=== PATIENT | male | born 1955 | race Caucasian/White ===

== ENCOUNTER → 2024-01-05 15:03 | Outpatient (REF) | payer OTHER, SELFPAY | LOC: RAD 15:03 | PROVIDERS: ATTENDING PHYSICIAN Student in an Organized Health Care Education/Training Program | DX: M54.50 Low back pain, unspecified (principal); S23.9XXS Sprain of unspecified parts of thorax, sequela | CPT/HCPCS: 72072; 72110 ==

== ENCOUNTER 2024-01-26 23:13 | Inpatient (IN) | payer OTHER, MEDICARE, SELFPAY ==
[2024-01-26 16:44] VITALS: BP 151/93
[2024-01-26 18:39] LABS: % Basophils 0.8 % (0-2); % Eosinophils 2.3 % (0-6); % Immature Granulocytes 0.3 % (0-0.5); % Lymphocytes 14.8 % (20.5-51.1); % Monocytes 11.2 % (1.7-9.3); % Neutrophils 70.6 % (42.2-75.2); Absolute Basophils 0.1 10^3/uL (0-0.2); Absolute Eosinophils 0.2 10^3/uL (0-0.7); Absolute Lymphocytes 1.2 10^3/uL (1.2-3.4); Absolute Monocytes 0.9 10^3/uL (0.1-0.6); Absolute Neutrophils 5.7 10^3/uL (1.4-6.5); Hematocrit 37.4 % (39.0-52.0); Hemoglobin 13.4 g/dL (13.0-18.0); Mean Corp Hgb Conc. 35.8 g/dL (33.0-37.0); Mean Corpuscular Hgb 29.5 pg (27.0-31.0); Mean Corpuscular Volume 82.4 fL (80.0-94.0); Mean Platelet Volume 10.1 fL (7.4-10.4); Nucleated Red Blood Cells % 0 % (-); Platelet Count 222 10^3/uL (130-400); Red Blood Cell Count 4.54 10^6/uL (4.70-6.10); Red Cell Dist. Width 13.3 % (11.5-14.5)
[2024-01-26 18:52] LABS: INR 1.19; PT 14.9 Sec (11.4-14.6)
--- NOTE | 2024-01-26 18:52 | ED.GENMED ---
History of Present Illness
<Darrel Adkins MD - Last Filed: 01/26/24 20:28>
General
Chief Complaint: DVT/Possible Blood Clot
Time Seen by Provider: 01/26/24 16:58
Travel History
Have you had any contact with someone who has COVID-19?: No
Do you have any symptoms of coronavirus? Fever > 100 degrees, chills, cough, shortness of breath, sore throat, loss of taste or smell, muscle aches, or headache?: No
<Dimitrios Davenport Jr., PA-C - Last Filed: 01/26/24 23:13>
General
Source: patient
Exam Limitations: none
Nursing documentation reviewed up to this point in time: agreed with
History of Present Illness
History of Present Illness:
61-year-old male past medical history of BPH status post surgery in 2019 presenting to the emergency department today for concerns of significant swelling to the left upper extremity starting at the bicep region starting 2 weeks ago slowly worsening
since no chest pain shortness of breath no history of blood clots no recent trauma surgery immobilization remote history of smoking.
Past History
<Darrel Adkins MD - Last Filed: 01/26/24 20:28>
Past History
ED Past Medical History: None
ED Past Surgical History: Orthopedic
Social History
Tobacco: Non-smoker
Alcohol: None
Personal:
Living: with family
Employment: Employed
Family History
Family History: Other
<Dimitrios Davenport Jr., PA-C - Last Filed: 01/26/24 23:13>
Review of Systems
Allergies reviewed?: Yes
All Other Systems: ROS reviewed and negative except as documented in HPI and ROS
<Dimitrios Davenport Jr., PA-C - Last Filed: 01/26/24 23:13>
Physical Exam
Physical Exam:
GENERAL: Alert , in no apparent distress
EYE: pupils equal and reactive
NECK: Supple, no significant adenopathy.
ENT: o/p clr, mmm.
CARDIAC: Regular rate and rhythm .
LUNGS: Clear breath sounds bilaterally, no acute respiratory distress, no wheezes/rales/rhonchi
ABDOMEN: Soft, without focal tenderness, no r/g, no cvat
NEUROLOGICAL: Alert and oriented, no focal neuro deficits
SKIN: Warm and dry, skin intact.
MUSCULOSKELETAL: Significant swelling to the left upper extremity redness swelling and warmth to the left bicep region some extension of swelling to the left arm and hand appears swollen compared to the right side. Swelling also goes to the left
axilla region. Normal distal pulses and cap refill well perfused.
PSYCH: Normal and appropriate interaction.
Course
<Darrel Adkins MD - Last Filed: 01/26/24 20:28>
Orders/Labs/Results
Orders:
Orders
01/26/24 16:48
Arms, left US [US Periph Venous UPPER Ext LT] Urgent
Comment: brusing to axilla
Reason For Exam: left arm swelling and bicep tenderness
01/26/24 18:22
CT Chest With Iv Contrast Urgent
Comment:
Reason For Exam: significant lue dvt
Neck w Contrast CT [CT Neck With Iv Contrast] Urgent
Comment:
Reason For Exam: arm dvt eval for extension
01/26/24 18:30
CBC/With Diff [Complete Blood Count/With Diff] Urgent
CMP [Comprehensive Metabolic Panel] Urgent
PT/INR [Prothrombin Time] Urgent
PTT Urgent
01/26/24 22:16
Heparin 6,900 units IV NOW STA
Nursing to Place Non Medication Order As Directed
Physician Order: PTT 6 hours after initial start of Heparin infusion
Above order entered?: Yes
03/12/24 22:30
Heparin 52772 Units/250 ml 25,000 units in 250 ml IV PER PROTOCOL
Weight to be used for heparin protocol in kilograms (kg):: 86.3
Protocol:: DVT/PE
PTT Goal Range to be used:: PTT 73 to 111 seconds
Order type:: Initial
INITIAL Infusion Dose (UNITS/KG/hr) & then follow protocol:: 18 units/kg/hr
Infusion Dose in UNITS/hr & then follow protocol (UNITS/hr):: 1,600
INFUSION RATE in mL/hr & then follow protocol (mL/hr):: 16
For DVT/PE algorithm, re-bolus for low PTT?: Yes
PTT less than or equal to 64 seconds:: Re-bolus 80 units/kg (max 10,000units). Increase by 300 units/hr
(+ 3mL/hr)
PTT 64.1 to 72.9 seconds:: Re-bolus 40 units/kg (max 5,000 units). Increase by 200 units/hr
(+ 2mL/hr)
PTT 73 to 111 seconds:: Target Range. No change in rate.
PTT 111.1 to 130.9 seconds:: Decrease rate by 200 units/hr (- 2 mL/hr)
PTT 131 to 199.9 seconds:: HOLD for 1 hr. Then decrease by 300 units/hr (- 3mL/hr)
PTT greater than or equal to 200 seconds:: HOLD for 2 hrs & Notify Provider. Then decrease by 300 units/hr
(- 3mL/hr)
Lab follow-up:: Each change, PTT q6h until 2 consecutive are therapeutic. Then
PTT daily.
01/26/24 22:37
Heparin 6,900 units IV PRN PRN
01/26/24 22:38
Heparin 3,500 units IV PRN PRN
01/26/24 22:54
Admit/Transfer Patient As Directed
Co-Sign Provider:
Level of Care: Inpatient admission
Assign to:: Medical/Surgical
Physician / Group: braydon carrillo
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
Reason for Hospitalization: extensive dvt L arm, lymphadenapathy likely lymphoma with mets ossoeus,
Expected length of stay greater than two midnights?: Yes
ELOS- Estimated Length of Stay in days: 4
I certify the patient meets the requirements for IP care: Yes
Code Status As Directed
Resuscitation Status: Full Code
01/27/24 04:45
PTT Urgent
Abnormal Lab Results
01/26/24
18:30
RBC 4.54 L 10^6/uL
(4.70-6.10)
Hct 37.4 L %
(39.0-52.0)
Absolute Monos (auto) 0.9 H 10^3/uL
(0.1-0.6)
Lymphocytes % 14.8 L %
(20.5-51.1)
Monocytes % 11.2 H %
(1.7-9.3)
PT 14.9 H Sec
(11.4-14.6)
Glucose 102 H mg/dl
(70-99)
01/26/24 18:30
01/26/24 18:30
Vital Signs
Initial and Last Documented VS:
Initial Vital Signs
Temp Pulse Resp BP Pulse Ox
98.8 F 92 18 151/93 97
01/26/24 16:44 01/26/24 16:44 01/26/24 16:44 01/26/24 16:44 01/26/24 16:44
Last Documented Vital Signs
Temp Pulse Resp BP Pulse Ox
98.8 F 92 18 151/93 97
01/26/24 16:44 01/26/24 16:44 01/26/24 16:44 01/26/24 16:44 01/26/24 16:44
<Dimitrios Davenport Jr., PA-C - Last Filed: 01/26/24 23:13>
Orders/Labs/Results
Orders:
Orders
01/26/24 16:48
Arms, left US [US Periph Venous UPPER Ext LT] Urgent
Comment: brusing to axilla
Reason For Exam: left arm swelling and bicep tenderness
01/26/24 18:22
CT Chest With Iv Contrast Urgent
Comment:
Reason For Exam: significant lue dvt
Neck w Contrast CT [CT Neck With Iv Contrast] Urgent
Comment:
Reason For Exam: arm dvt eval for extension
01/26/24 18:30
CBC/With Diff [Complete Blood Count/With Diff] Urgent
CMP [Comprehensive Metabolic Panel] Urgent
PT/INR [Prothrombin Time] Urgent
PTT Urgent
01/26/24 22:16
Heparin 6,900 units IV NOW STA
Nursing to Place Non Medication Order As Directed
Physician Order: PTT 6 hours after initial start of Heparin infusion
Above order entered?: Yes
01/26/24 22:30
Heparin [id number] Units/250 ml 25,000 units in 250 ml IV PER PROTOCOL
Weight to be used for heparin protocol in kilograms (kg):: 86.3
Protocol:: DVT/PE
PTT Goal Range to be used:: PTT 73 to 111 seconds
Order type:: Initial
INITIAL Infusion Dose (UNITS/KG/hr) & then follow protocol:: 18 units/kg/hr
Infusion Dose in UNITS/hr & then follow protocol (UNITS/hr):: 1,600
INFUSION RATE in mL/hr & then follow protocol (mL/hr):: 16
For DVT/PE algorithm, re-bolus for low PTT?: Yes
PTT less than or equal to 64 seconds:: Re-bolus 80 units/kg (max 10,000units). Increase by 300 units/hr
(+ 3mL/hr)
PTT 64.1 to 72.9 seconds:: Re-bolus 40 units/kg (max 5,000 units). Increase by 200 units/hr
(+ 2mL/hr)
PTT 73 to 111 seconds:: Target Range. No change in rate.
PTT 111.1 to 130.9 seconds:: Decrease rate by 200 units/hr (- 2 mL/hr)
PTT 131 to 199.9 seconds:: HOLD for 1 hr. Then decrease by 300 units/hr (- 3mL/hr)
PTT greater than or equal to 200 seconds:: HOLD for 2 hrs & Notify Provider. Then decrease by 300 units/hr
(- 3mL/hr)
Lab follow-up:: Each change, PTT q6h until 2 consecutive are therapeutic. Then
PTT daily.
01/26/24 22:37
Heparin 6,900 units IV PRN PRN
01/26/24 22:38
Heparin 3,500 units IV PRN PRN
01/26/24 22:54
Admit/Transfer Patient As Directed
Co-Sign Provider:
Level of Care: Inpatient admission
Assign to:: Medical/Surgical
Physician / Group: braydon carrillo
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
Reason for Hospitalization: extensive dvt L arm, lymphadenapathy likely lymphoma with mets ossoeus, 9
Expected length of stay greater than two midnights?: Yes
ELOS- Estimated Length of Stay in days: 4
I certify the patient meets the requirements for IP care: Yes
Code Status As Directed
Resuscitation Status: Full Code
01/27/24 04:45
PTT Urgent
Abnormal Lab Results
01/26/24
18:30
RBC 4.54 L 10^6/uL
(4.70-6.10)
Hct 37.4 L %
(39.0-52.0)
Absolute Monos (auto) 0.9 H 10^3/uL
(0.1-0.6)
Lymphocytes % 14.8 L %
(20.5-51.1)
Monocytes % 11.2 H %
(1.7-9.3)
PT 14.9 H Sec
(11.4-14.6)
Glucose 102 H mg/dl
(70-99)
01/26/24 18:30
01/26/24 18:30
Vital Signs
Initial and Last Documented VS:
Initial Vital Signs
Temp Pulse Resp BP Pulse Ox
98.8 F 92 18 151/93 97
01/26/24 16:44 01/26/24 16:44 01/26/24 16:44 01/26/24 16:44 01/26/24 16:44
Last Documented Vital Signs
Temp Pulse Resp BP Pulse Ox
98.8 F 92 18 151/93 97
01/26/24 16:44 01/26/24 16:44 01/26/24 16:44 01/26/24 16:44 01/26/24 16:44
<Dimitrios Davenport Jr., PA-C - Last Filed: 01/26/24 23:13>
MDM/Problems Addressed
MDM/Problems Addressed:
69-year-old male presenting to the emergency department today with concerns of swelling to the left arm nontraumatic no risk factors for blood clot no history of blood clots. Ultrasound performed that showed extensive clot throughout the left upper
extremity. Case was discussed with vascular. Plan for additional imaging into the chest and neck to see if there is any specific cause or extension of DVT. CT showing extensive additional clot into the internal jugular of the left side as well as
the distal segment of the brachiocephalic vein. There is a large amount of lymphadenopathy in the mediastinum raising concern for possible lymphoma or teofilo metastasis. There is an osteolytic lesion of T3 as well. These findings were discussed
with the patient. Vascular surgery was given update of additional findings. Patient was started on heparin and admitted to the hospital in stable condition.
<Dimitrios Davenport Jr., PA-C - Last Filed: 01/26/24 23:13>
*Critical Care Note
Total Time (30-74mins, 75-104mins- exclusive of procedures): Not Applicable
ED Attending Note
<Darrel Adkins MD - Last Filed: 01/26/24 20:28>
ED Attending Note
Patient seen and examined by attending physician: Yes
I performed the substantive portion of visit, reviewed & personally made and approve the management plan that is documented in note by myself or LILIANA.: Yes
ED Attending Note:
Nontraumatic swelling of the right arm progressive over weeks. No chest pain or shortness of breath. No trauma. No IV issues. No history of same.
On exam patient has significant swelling to the left arm with some erythema to the proximal left arm. Some venous changes along the upper chest wall. Good distal pulses and color.
No reason for this patient to have the extensive DVT. Reviewed ultrasound. Discussed with radiology. We have also talked to vascular surgery. Will get CT chest and neck
-
Portions of this chart may have been created with voice recognition software.� Occasional wrong word or��sound alike� substitutions may have occurred due to the inherent limitations of voice recognition software.
Discharge Plan
Departure
Patient Disposition: Admit
Date of Disposition: 01/26/24
Time of Disposition: 23:12
Admit to: Telemetry
Admit to doctor: Brad
Presentation/result/management discussed w/ accepting MD/DO: Hospitalist
Patient with high blood pressure during this ER visit?: Yes
Condition: Good
Covid-19: Not Applicable
Discharge Problem:
DVT (deep venous thrombosis), Lymphadenopathy, Osteolytic lesion
Prescriptions:
No Action
multivitamin Tablet
1 tab PO QPM
finasteride 5 mg tablet
5 mg PO HS
tamsulosin 0.4 MG capsule
0.4 mg PO HS
Referrals:
Pritesh Rai MD [Family Provider] -
Interventions
Interventions:
*Risk Screen - Suicide Last Done: 01/26/24 16:44
*General Assessment Last Done: 01/26/24 16:44
*Neglect/Abuse Screening Last Done: 01/26/24 16:44
ED- Fall Risk Assessment Last Done: 01/26/24 18:33
*ED COVID-19 Vaccine History Last Done: 01/26/24 17:11
ED- Cardiac Assessment Last Done: 01/26/24 18:33
ED- Pulmonary Assessment Last Done: 01/26/24 18:33
ED-Peripheral Vascular Assessment Last Done: 01/26/24 20:06
ED-Skin Assessment Last Done: 01/26/24 20:11
[2024-01-26 18:53] LABS: ALT (SGPT) 16 U/L (0-50); AST (SGOT) 29 U/L (17-59); Albumin 4.1 g/dl (3.5-5.0); Alkaline Phosphatase 77 U/L (38-126); Blood Urea Nitrogen 15 mg/dl (9-20); Calcium 9.5 mg/dl (8.4-10.2); Carbon Dioxide 29 mmol/L (22-30); Chloride 103 mmol/L (98-107); Glucose 102 mg/dl (70-99); Potassium 3.9 mmol/L (3.5-5.1); Sodium 136 mmol/L (135-145); Total Bilirubin 0.9 mg/dl (0.2-1.3); Total Protein 7.1 g/dl (6.3-8.2); eGFR > 60.00
[2024-01-26 20:04] VITALS: BMI 25.8
[2024-01-26 20:05] VITALS: BP 149/88
[2024-01-26 20:53] VITALS: BP 167/96
[2024-01-26 21:00] VITALS: BP 161/99
[2024-01-26 22:00] VITALS: BP 159/95
--- NOTE | 2024-01-26 22:25 | HPS.HSE ---
Addendum entered and electronically signed by Izabella Aguirre MD 01/26/24 23:07:
Patient seen and examined independently with [employer]. 69-year-old male past medical history of BPH status post surgery presenting with significant swelling and pain of his left upper extremity worsening over the past 2 weeks. No chest pain or shortness
of breath. No facial flushing/headache/blurry vision. Vascular ultrasound left upper extremity shows large amount of occlusive thrombus of the left upper extremity including internal jugular/subclavian and axillary veins, cephalic/brachial/basilic
veins. CT chest shows in addition shows large amount of lymphadenopathy in the mediastinum/supraclavicular regions concerning for lymphoma. There is also T3 and C5 osteolytic metastases, nondisplaced fracture of left lateral ninth rib.
Significant DVT secondary to likely newly discovered lymphoma. Heparin drip started. Vascular surgery consulted. Oncology consulted. Pain control.
Original Note:
Family Physician
-
Family Physician: Pritesh Rai
Chief Complaint
-
Left arm swelling, fatigue, left sided rib pain
History of Present Illness
69-year-old male complaining of swelling to his left upper extremity bicep area over the last 7 to 10 days extending down to left hand. He also reports fatigue over the last 1 to 2 months and midthoracic back pain a few weeks ago radiating to left
rib. He reports he was seen by PCP placed on a short course of prednisone and couple day dose of meloxicam but the pain did not dissipate. He reports he has pain along the left ninth ribs with inspiration and to touch. He denies any weight loss,
fever, chills ,recent trauma, chest pain, shortness of breath, palpitations, fever, chills, headache, dizziness. His past medical history of urinary retention/BPH.
Medical History
Past Medical History
Past Medical History: Reports Other (BPH)
Past Surgical History: Reports Other
Additional Past Surgical History:
TURP 2019
Left inguinal hernia repair 2019
Social History
Tobacco: Non-smoker
Alcohol: None
Drug: None
Personal: Single
Living: With Family (Son)
Employment: Employed ([employer])
Family History
Family History: Other (Believes father of lymphoma in his 80s, mother history of obesity, cardiac disease )
Allergies / Home Medications
Allergies reflects when Allergies were last updated in [facility].
Home Medications with original date entered in [facility]
Allergy/Medication List:
Allergies
Allergy/AdvReac Type Severity Reaction Status Date / Time
No Known Allergies Allergy Verified 01/08/21 20:51
Home Medications
finasteride 5 mg tablet 5 mg PO HS 01/26/24
multivitamin 1 tab PO QPM 01/26/24
tamsulosin 0.4 mg capsule 0.4 mg PO HS 01/26/24
Review of Systems
-
History Source: Patient
A 12 point ROS was completed and negative except as noted: Yes
Constitutional: Reports Fatigue; Denies Fever, Weight Loss or Chills
EENT: Denies Sore Throat, Mouth Pain or Runny Nose
Respiratory: Reports Cough and Other (Left lateral rib pain at ninth rib)
Cardiac: Denies Chest Pain, Diaphoresis, Palpitations or Syncope
Abdomen/GI: Denies Abdominal Pain, Nausea, Vomiting, Diarrhea, Constipated, Bloody Stools or Black Stools
: Denies Dysuria, Frequency, Flank Pain, Incontinence, Difficulty Voiding or Urgency
Musculoskeletal: Reports Edema (Left upper bicep to left lower extremity and hand)
Skin: Denies Itching or Rash
Neurological: Denies Dizzy, Headache or Weakness
Endocrine: Reports No Symptoms
Hematologic/Lymphatic: Reports No Symptoms
Psych: Reports Calm
Physical Exam
Vital Signs
Vital Signs
Temp Pulse Resp BP Pulse Ox
98.8 F 92 18 151/93 97
01/26/24 16:44 01/26/24 16:44 03/12/24 16:44 01/26/24 16:44 01/26/24 16:44
Physical Exam
General: Conversant; No Pain, Fever or Chills
HEENT: NormoCephalic, Anicteric, Moist mucous membranes, PERRLA, [place] Conjunctivae, No Ptosis and Neck Nontender
Respiratory: Clear; No Wheezes, Rales or Rhonchi
Cardiac: S1/S2 and Regular Rhythm
GI: Soft, Non Tender, Non Distended, Normal Bowel Sounds and No Hepatosplenomegaly
Rectal: Deferred by Provider
Genito-urinary: Deferred by me
Musculoskeletal: No Clubbing, No Cyanosis and Edema, Left Upper Extremity (Left upper bicep to left lower extremity and hand); No Edema, Right Upper Extremity, Edema, Left Lower Extremity or Edema, Right Lower Extremity
Skin: Warm and Dry; No Rash or Jaundice
Neuro: AO x 3, No Motor Deficits, Nonfocal/grossly intact, Cranial Nerves Intact and No Sensory Deficits; No Slurred Speech, Facial Droop, Tremors or Sedated
Psych: Calm
Laboratory Results
-
01/26/24 18:30
01/26/24 18:30
Laboratory Results
PT 14.9 Sec (11.4-14.6) H 01/26/24 18:30
INR 1.19 01/26/24 18:30
APTT 34.0 Sec (23.4-35.0) 01/26/24 18:30
Total Bilirubin 0.9 mg/dl (0.2-1.3) 01/26/24 18:30
AST 29 U/L (17-59) 01/26/24 18:30
ALT 16 U/L (0-50) 01/26/24 18:30
Alkaline Phosphatase 77 U/L (38-126) 01/26/24 18:30
Data Reviewed
-
CT Scan: Report Reviewed by me
Lab Data: Labs Reviewed by me
Impression/Plan
-
Impression/plan:
Admit to MedSurg
#Extensive DVT left upper extremity�left internal jugular/brachiocephalic in setting of NEW LYMPHOMA with mets to cervical, thoracic, scapular , ninth rib w/ fx
-IV heparin drip
-Consult oncology
- consult vascular surgery
CT neck with IV contrast:
1. Extensive occlusive thrombus in the left upper extremity with extension into the left internal jugular vein to the mid to upper neck at the level of C2 and the distal segment of the left brachiocephalic vein.
2. Large amount of lymphadenopathy in the mediastinum and bilateral supraclavicular regions raising concern for lymphoma or teofilo metastases.
3. Large osteolytic metastasis of the T3 vertebral body and posterior elements with extraosseous soft tissue.
4. Smaller lytic lesions in the C5 vertebral body and in the right scapula.
5. Subacute nondisplaced fracture of the left lateral ninth rib.
Ultrasound left upper extremity: Large amount of occlusive thrombus in the cephalic, brachial, basilic veins of the upper arm. Occlusive thrombus in the basilic vein distal to the elbow
#BPH
#Urinary retention Hx
Monitor urine output
Continue Flomax 0.4 mg daily, finasteride hs
Full code
[2024-01-26] MEDS: HEPARIN 6900 UNITS IV (22:40)
[2024-01-26] MEDS: HEPARIN 25000 UNITS/250 ML IV (22:41)
[2024-01-26 23:00] VITALS: BP 171/99
[2024-01-27] VITALS (7 sets, daily range): BP systolic 138–160; BP diastolic 84–105; BMI 25.6
--- NOTE | 2024-01-27 02:00 | PTCARENOTE ---
Received patient from the ED into room 2129. Patient able to ambulate to the bed without assistance. AAOx3. VSS. Heparin running at 16ml/hr (1600 units/hr) into R AC. PTT to be drawn at 0445. +3 edema to LUE that is red and warm. The rest of
assessment is as documented. Patient is resting comfortably in bed with call brown within reach.
--- NOTE | 2024-01-27 04:17 | W.PN.UPDATE ---
Update Note
Progress Note Update
One time order for Proscar 5mg and Flomax 0.4mg placed to cover patient HS dose as admission orders carried start date until next day.
[2024-01-27] MEDS: FLOMAX 0.400000000000000022 MG PO ×2 (04:31→20:19)
[2024-01-27] MEDS: PROSCAR 5 MG PO ×2 (04:36→20:19)
--- NOTE | 2024-01-27 04:54 | PTCARENOTE ---
Patient requesting dose of home medications of Flomax and Proscar. States he typically takes them after dinner and did not receive them last night. Reporting frequency and difficulty with urination due to the missed dose. Notified [employer]. One time
dose of Flomax 0.4mg PO and Proscar 5mg PO ordered and given. Patient has no further complaints at this time and is resting comfortably in bed with call brown within reach.
[2024-01-27 05:07] LABS: % Basophils 0.9 % (0-2); % Eosinophils 2.7 % (0-6); % Immature Granulocytes 0.2 % (0-0.5); % Lymphocytes 15.4 % (20.5-51.1); % Neutrophils 68.8 % (42.2-75.2); Absolute Basophils 0.1 10^3/uL (0-0.2); Absolute Eosinophils 0.2 10^3/uL (0-0.7); Absolute Lymphocytes 1.3 10^3/uL (1.2-3.4); Absolute Neutrophils 5.7 10^3/uL (1.4-6.5); Hematocrit 36.2 % (39.0-52.0); Hemoglobin 12.8 g/dL (13.0-18.0); Mean Corp Hgb Conc. 35.4 g/dL (33.0-37.0); Mean Corpuscular Hgb 29.1 pg (27.0-31.0); Mean Corpuscular Volume 82.3 fL (80.0-94.0); Mean Platelet Volume 10.4 fL (7.4-10.4); Nucleated Red Blood Cells % 0 % (-); Platelet Count 223 10^3/uL (130-400); Red Cell Dist. Width 13.1 % (11.5-14.5); White Blood Cell Count 8.2 10^3/uL (4.8-10.8)
[2024-01-27 05:19] LABS: APTT 155.5 Sec (23.4-35.0)
--- NOTE | 2024-01-27 05:28 | PTCARENOTE ---
Addendum entered by Radha Grider RN 01/27/24 06:31:
Heparin drip restarted at 1300 units/hr.
Original Note:
Patient PTT critical result of 155.5. Per protocol, heparin drip is on hold for 1 hour. At 0624, the rate will decrease by 300 from 1600 units/hr to 1300 units/hr. Will reassess PTT six hours from 0624.
[2024-01-27 05:44] LABS: Blood Urea Nitrogen 15 mg/dl (9-20); Calcium 9.2 mg/dl (8.4-10.2); Carbon Dioxide 25 mmol/L (22-30); Chloride 101 mmol/L (98-107); Estimated Creatinine Clearance 78 ml/min; Glucose 121 mg/dl (70-99); Potassium 3.5 mmol/L (3.5-5.1); Sodium 137 mmol/L (135-145); eGFR > 60.00
--- NOTE | 2024-01-27 09:04 | W.PN.HOSP.TC ---
Today's Communication/Plan
-
see bold
Assessment / Plan
Assessment / Plan
HPI: 69-year-old male past medical history of BPH status post surgery presenting with significant swelling and pain of his left upper extremity worsening over the past 2 weeks.� No chest pain or shortness of breath.� No facial
flushing/headache/blurry vision.� Vascular ultrasound left upper extremity shows large amount of occlusive thrombus of the left upper extremity including internal jugular/subclavian and axillary veins, cephalic/brachial/basilic veins.� CT chest
shows in addition shows large amount of lymphadenopathy in the mediastinum/supraclavicular regions concerning for lymphoma.� There is also T3 and C5 osteolytic metastases, nondisplaced fracture of left lateral ninth rib. Significant DVT secondary to
likely newly discovered lymphoma.� Heparin drip started.� Vascular surgery consulted.� Oncology consulted. Pain control.
#Extensive DVT left upper extremity�provoked
Vascular surgery consulted, continue heparin drip
#Large amount of lymphadenopathy in the mediastinum and bilateral supraclavicular regions raising concern for lymphoma or teofilo metastases
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
#Smaller lytic lesions in the C5 vertebral body and in the right scapula.
Appreciate oncology input, who recommends ENT consult for lymph node biopsy
#Subacute nondisplaced fracture of the left lateral ninth rib
Lidocaine patch, tylenol, pain meds prn
�� � � � � ��CT neck with IV contrast:
�� � � � � � � � � 1. Extensive occlusive thrombus in the left upper extremity with extension into the left internal jugular vein to the mid to upper neck at the level of C2 and the distal segment of the left brachiocephalic vein.
�� � � � � � � � � 2. Large amount of lymphadenopathy in the mediastinum and bilateral supraclavicular regions raising concern for lymphoma or teofilo metastases.
�� � � � � � � � � 3. Large osteolytic metastasis of the T3 vertebral body and posterior elements with extraosseous soft tissue.
�� � � � � � � � � 4. Smaller lytic lesions in the C5 vertebral body and in the right scapula.
�� � � � � � � � � 5. Subacute nondisplaced fracture of the left lateral ninth rib.
� � � � � ���Ultrasound left upper extremity:�Large amount of occlusive thrombus in the cephalic, brachial, basilic veins of the upper arm.� Occlusive thrombus in the basilic vein distal to the elbow
#BPH
#Urinary retention Hx
Continue Flomax 0.4 mg daily, finasteride hs
DVT prophylaxis�heparin drip
Full code
Physical Exam
General: No acute distress
HEENT: Normocephalic, Atraumatic, EOMI, MMM
Lymphadenopathy (L>R supraclav nodes, ~1cm)
Respiratory: Clear to Auscultation bilaterally
Cardiac: Normal S1/S2, Regular Rate and Rhythm
GI: Soft, Nontender, Nondistended, Normal Bowel Sounds
Extremities: No Clubbing, Cyanosis
Left upper extremity diffusely edematous, tender to palpation
Anticipated Discharge: 24 - 48 hours
Subjective/Interval History
-
Date of Service: January 27, 2024
Patient reports that his left upper extremity has been painful for 10 days. Denies shortness of breath. No fever, no night sweats, no unexplained weight loss, no anorexia.
Objective Data
-
Labs:
Laboratory Results
01/27/24 01/27/24
04:20 12:25
WBC 8.2
Hgb 12.8 L
Hct 36.2 L
Plt Count 223
APTT 155.5 H* Pending
Sodium 137
Potassium 3.5
Chloride 101
Carbon Dioxide 25
BUN 15
Creatinine 1.0
Glucose 121 H
Calcium 9.2
Vital Signs:
Vital Signs
Temp Pulse Resp BP Pulse Ox
98.7 F 89 14 142/84 95
01/27/24 07:25 01/27/24 07:25 01/27/24 07:25 01/27/24 07:25 01/27/24 07:25
I&O
03/11/0801/27/24 01/28/24
06:59 06:59 06:59
Intake Total 360 / 360
Balance 360 / 360
--- NOTE | 2024-01-27 11:25 | CON.ONC ---
Impression
Impression
LUE DVT, provoked in the setting of regional lymphadenopathy
neck/mediastinal adenopathy, suggestive of malignancy
bone lesions - T3, C5, right scapula; with back pain
Plan
Plan
Discussed findings suggestive of malignancy, lymphoma or other cancer
Will ask ENT to evaluate for excisional node biopsy for diagnosis
Continue heparin, to be held perioperatively as per ENT
Could switch to DOAC after biopsy
Will follow along and arrange outpatient heme/onc f/u at time of d/c
Patient History
History of Present Illness
This is a 69 yo M who presented to the emergency room with several day history of increasing left arm swelling and discomfort. Over the past few months he has noted some increasing fatigue and decreasing appetite, without weight loss. He had back
pain, unexplained by plain films unrelieved by physical therapy. Left upper extremity ultrasound revealed a large amount of occlusive thrombus. CT scans of the neck and chest showed occlusive thrombus with extension into the left internal jugular
vein in the distal segment of the left brachiocephalic vein. There is a large amount of lymphadenopathy in the mediastinum and bilateral supraclavicular regions raising concern for lymphoma or teofilo metastases. There is a large osteolytic
metastasis at the T3 vertebral body and posterior elements with extraosseous soft tissue, and smaller lytic lesions in the C5 vertebral body and in the right scapula. There is a subacute nondisplaced fracture of the left lateral ninth rib.. CBC at
admission showed white blood cell count of 8.0, hemoglobin of 13.4 and platelet count of 222. Chemistry panel was unremarkable, except slight glucose elevation.
He denies any history of cancer. He has not had a colonoscopy. He sees Dr. Duron for BPH. He had a hernia repair several years ago. No cough, shortness of breath, bowel changes, signs of GI bleeding, loss of appetite.
Past-Medical/Surgical History
Past medical and surgical history is as per the HPI
Family history is noncontributory
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
Patient Medication
Medication Instructions Recorded Confirmed Last Taken Type
finasteride 5 mg tablet 5 mg PO HS Urinary Issue 01/26/24 01/26/24 01/25/24 History
multivitamin 1 tab PO QPM Supplement 01/26/24 01/26/24 Unknown History
tamsulosin 0.4 mg capsule 0.4 mg PO HS Urinary Issue 01/26/24 01/26/24 01/25/24 History
Active Medications
Generic Name Dose Route Start Last Admin
Trade Name Freq PRN Reason Stop Dose Admin
Acetaminophen 650 mg 01/27/24 01:20
Acetaminophen 325 Mg Tablet PO 02/24/24 01:19
Q4HPRN PRN
mild pain/LEO/temp> 100.4F
Finasteride 5 mg 01/27/24 22:00
Finasteride 5 Mg Tablet PO 02/24/24 21:59
HS KRITSAN
Heparin Sodium 6,900 units 01/26/24 22:37
Heparin 80 Units/Kg Iv Rebolus IV 02/23/24 22:36
PRN PRN
PTT < OR = 64 seconds
Heparin Sodium 3,500 units 01/26/24 22:38
Heparin 40 Units/Kg Iv Rebolus IV 02/23/24 22:37
PRN PRN
PTT = 64.1 to 72.9 seconds
Heparin Sodium 25,000 units in 250 mls @ 0 mls/hr 01/26/24 22:30 01/26/24 22:41
Heparin 90759 Units/250 Ml IV 250 mls
PER PROTOCOL KRISTAN Administration
Protocol
Per Protocol
Multivitamins Therapeutic 1 tablet 01/27/24 18:00
Multivitamin Tablet PO 02/24/24 17:59
QPM KRISTAN
Oxycodone HCl 5 mg 01/27/24 01:20
Oxycodone 5 Mg Regular Release Tablet PO 02/10/24 01:19
Q4HPRN PRN
moderate pain
Sodium Chloride 0 flush 01/27/24 02:00
Sodium Chloride 0.9% (Flush) Syringe IV 02/24/24 01:59
PER PROTOCOL KRISTAN
Tamsulosin HCl 0.4 mg 01/27/24 22:00
Tamsulosin 0.4 Mg Capsule PO 02/24/24 21:59
HS KRISTAN
Review of Systems
-
History Source: Patient
Constitutional: Reports No Appetite and Fatigue; Denies Fever, Weight Gain or Weight Loss
EENT: Denies Sore Throat
Respiratory: Denies Cough or Trouble Breathing
Cardiac: Denies Chest Pain, Diaphoresis or Palpitations
GI: Denies Abdominal Pain, Nausea, Vomiting, Diarrhea, Bloody Stools, Black Stools or Pain
: Denies Dysuria
Musculoskeletal: Reports Edema
Neuro: Denies Weakness
Physical Exam
-
General: Well Developed, Well Nourished and No Apparent Distress
HEENT: Negative Jaundice
Cardiology: Normal Sinus Rhythm
Pulmonary: Clear
GI: Soft and Normal Bowel Sounds
Musculoskeletal: No Clubbing, No Cyanosis and Edema. Left Upper Extrem
Neurology: Non Focal
Skin: Warm and Dry
Hematologic / Lymphatic: Lymphadenopathy (L>R supraclav nodes, ~1cm)
Psych: Calm and Intact Judgement/Insight
Labs
Lab Results
WBC 8.2 10^3/uL (4.8-10.8) 01/27/24 04:20
RBC 4.40 10^6/uL (4.70-6.10) L 01/27/24 04:20
Hgb 12.8 g/dL (13.0-18.0) L 01/27/24 04:20
Hct 36.2 % (39.0-52.0) L 01/27/24 04:20
MCV 82.3 fL (80.0-94.0) 01/27/24 04:20
MCH 29.1 pg (27.0-31.0) 01/27/24 04:20
MCHC 35.4 g/dL (33.0-37.0) 01/27/24 04:20
RDW 13.1 % (11.5-14.5) 01/27/24 04:20
Plt Count 223 10^3/uL (130-400) 01/27/24 04:20
MPV 10.4 fL (7.4-10.4) 01/27/24 04:20
Abs Immat Gran (auto) 0.0 10^3/uL (0-0.05) 01/27/24 04:20
Absolute Neuts (auto) 5.7 10^3/uL (1.4-6.5) 01/27/24 04:20
Absolute Lymphs (auto) 1.3 10^3/uL (1.2-3.4) 01/27/24 04:20
Absolute Monos (auto) 1.0 10^3/uL (0.1-0.6) H 01/27/24 04:20
Absolute Eos (auto) 0.2 10^3/uL (0-0.7) 01/27/24 04:20
Absolute Basos (auto) 0.1 10^3/uL (0-0.2) 01/27/24 04:20
Immature Gran % 0.2 % (0-0.5) 01/27/24 04:20
Neutrophils % 68.8 % (42.2-75.2) 01/27/24 04:20
Lymphocytes % 15.4 % (20.5-51.1) L 01/27/24 04:20
Monocytes % 12.0 % (1.7-9.3) H 01/27/24 04:20
Eosinophils % 2.7 % (0-6) 01/27/24 04:20
Basophils % 0.9 % (0-2) 01/27/24 04:20
Creatinine 1.0 mg/dL (0.7-1.3) 01/27/24 04:20
Vital Signs
Vital Signs
Temp Pulse Resp BP Pulse Ox
98.7 F 89 14 142/84 95
01/27/24 07:25 01/27/24 07:25 01/27/24 07:25 01/27/24 07:25 01/27/24 10:10
[2024-01-27 13:04] LABS: APTT 61.3 Sec (23.4-35.0)
[2024-01-27] MEDS: HEPARIN 6900 UNITS IV (13:23)
--- NOTE | 2024-01-27 14:01 | W.PN.UPDATE ---
Update Note
Progress Note Update
Seen and examined with [facility]. Full consultation to follow. Briefly 69-year-old male who presented with most prominently increasing swelling in the left arm over the last 4 to 5 days. (Over the last weekend). He has had vague other symptoms
leading up to it. He notes overall tiredness, weight loss. He had noted back pain prior as well. Found to have extensive DVT in the left upper extremity. Found to have left IJ DVT as well. Further imaging suggesting potential malignancy as well.
Denies any motor weakness in the upper extremity. Just a sensation of slight tightness with the swelling. Otherwise he has no functional issues. No pain currently. No prior history of DVTs. No family history of DVTs. No significant other
cardiovascular risk factors that he reports.
Exam/He is awake and alert. He is in no acute distress. Breathing is unlabored. Left upper extremity moderate edema through the upper and forearm. The arm is soft. Compartments are all soft. No phlegmasia. Hand is pink and warm with palpable
radial pulse. Motor function completely intact.
Imaging all reviewed. Extensive left upper extremity DVT with extension into the subclavian vein and IJ vein with occlusive thrombus. Does not appear to involve the right sided brachiocephalic vein. SVC also does not appear involved. As noted in
imaging, multiple enlarged lymph nodes and concerning findings for malignancy/metastasis.
Plan/ Acute left upper extremity and IJ DVT in the setting of malignancy with multiple lymph nodes/lymphadenopathy and other findings as noted on scan. No phlegmasia. Compartments all soft. Nothing to offer from a invasive vascular surgical
perspective. Would recommend anticoagulation, defer to oncology/hematology for remainder of oncologic workup. Will sign off. Please call with questions.
--- NOTE | 2024-01-27 14:42 | CON.MD ---
Consultation - Medical
-
Patient seen and evaluated at the bedside.
Full consult dictated.
A/Z-22-navu-old male with bulky cervical and mediastinal lymphadenopathy, concern for lymphoma.
-Agree with excisional lymph node biopsy.
-Will attempt to get left supraclavicular lymph node for biopsy tomorrow in OR.
-Patient scheduled for procedure at approximately 12:30 PM on January 27.
-Risks and benefits of surgery discussed with patient, informed consent was obtained.
-Please keep patient n.p.o. for procedure.
-Hold heparin for at least 4 hours prior to procedure.
--- NOTE | 2024-01-27 14:48 | CON.VAS ---
Consultation
Consultation Request
Performing Provider: Smooth
Reason for Consultation: LUE DVT
Medical History
-
Chief Complaint: Left arm swelling
History of Present Illness:
69-year-old male who presented with most prominently increasing swelling in the left arm over the last 4 to 5 days.� (Over the last weekend).� He has had vague other symptoms leading up to it.� He notes overall tiredness, weight loss.� He had noted
back pain prior as well.� Found to have extensive DVT in the left upper extremity.� Found to have left IJ DVT as well.� Further imaging suggesting potential malignancy as well.
Denies any motor weakness in the upper extremity.� Just a sensation of slight tightness with the swelling.� Otherwise he has no functional issues.� No pain currently.� No prior history of DVTs.� No family history of DVTs.� No significant other
cardiovascular risk factors that he reports.
Exam/He is awake and alert.� He is in no acute distress.� Breathing is unlabored.� Left upper extremity moderate edema through the upper and forearm.� The arm is soft.� Compartments are all soft.� No phlegmasia.� Hand is pink and warm with palpable
radial pulse.� Motor function completely intact.
Imaging all reviewed.� Extensive left upper extremity DVT with extension into the subclavian vein and IJ vein with occlusive thrombus.� Does not appear to involve the right sided brachiocephalic vein.� SVC also does not appear involved.� As noted in
imaging, multiple enlarged lymph nodes and concerning findings for malignancy/metastasis.
Past Medical History
Past Medical History: Other (BPH)
Past Surgical History: None
Social History
Tobacco: Non-Smoker
Alcohol: None
Drug: None
Living: With Family
Employment: Employed
Family History
Family History: Cancer (Father with 'similar stuff' in his 80's)
Allergies / Home Medications
Allergy/AdvReac Type Severity Reaction Status Date / Time
No Known Allergies Allergy Verified 01/08/21 20:51
Medication Instructions Recorded Confirmed Type
finasteride 5 mg tablet 5 mg PO HS Urinary Issue 01/26/24 01/26/24 History
multivitamin 1 tab PO QPM Supplement 01/26/24 01/26/24 History
tamsulosin 0.4 mg capsule 0.4 mg PO HS Urinary Issue 01/26/24 01/26/24 History
Review of Systems
-
History Source: Patient
All other systems: Negative unless noted
Constitutional: Reports Weight Loss and Fatigue
EENT: Reports No Symptoms
Respiratory: Reports No Symptoms
Cardiac: Reports No Symptoms
Vascular: Denies Leg Pain / Claudication
Abdomen/GI: Reports No Symptoms
: Reports No Symptoms
Musculoskeletal: Reports Muscle Pain (back pain)
Skin: Reports No Symptoms
Neurological: Reports No Symptoms
Endocrine: Reports No Symptoms
Physical Exam
Vital Signs
Temp Pulse Resp BP Pulse Ox
98.7 F 89 14 142/84 95
01/27/24 07:25 01/27/24 07:25 01/27/24 07:25 01/27/24 07:25 01/27/24 10:10
Lab Results
01/27/24 04:20
01/27/24 04:20
Physical Exam
General: No Apparent Distress
HEENT: Normocephalic and Atraumatic
Respiratory: Non Labored Respirations
Cardiac: Other (palpable radial pulses BL); Negative JVD
GI: Soft and Non Tender
Musculoskeletal: No Clubbing, No Cyanosis and Edema (LUE)
Skin: Warm
Neuro: Awake, Alert and Oriented
Psych: Calm
Pulses: Bilateral Femoral: +2
Assessment / Plan
-
Plan/ Acute left upper extremity and IJ DVT in the setting of malignancy with multiple lymph nodes/lymphadenopathy and other findings as noted on scan.� No phlegmasia.� Compartments all soft.� Nothing to offer from a invasive vascular surgical
perspective.� Would recommend anticoagulation, defer to oncology/hematology for remainder of oncologic workup.� Will sign off.� Please call with questions.
--- NOTE | 2024-01-27 15:00 | CM ---
Initial assessment completed with patient who lives with his 2 sons and a lindsey-in-law. 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 Pharmacy is [facility] in [place] and PCP is Pritesh Rai at [facility]. Anticipate discharge to home with no services.
[2024-01-27] MEDS: THERAGRAN 1 TABLET PO (17:18)
[2024-01-27] MEDS: HEPARIN 25000 UNITS/250 ML IV (17:22)
--- NOTE | 2024-01-27 21:24 | PTCARENOTE ---
Addendum entered by Radha Griedr RN 01/27/24 23:12:
This RN restarted pump at 2155 at 1300 units/hour.
Original Note:
PTT critical value of 179.0. Per protocol, heparin is now on hold for an hour. Will resume at 2155 and decrease by 300. Patient was currently running at 1600 units/hr and will go to 1300 units/hour when resumed.
[2024-01-28] VITALS (7 sets, daily range): BP systolic 118–140; BP diastolic 69–94
[2024-01-28 05:05] LABS: Hematocrit 35.8 % (39.0-52.0); Hemoglobin 12.6 g/dL (13.0-18.0); Mean Corp Hgb Conc. 35.2 g/dL (33.0-37.0); Mean Corpuscular Volume 82.5 fL (80.0-94.0); Mean Platelet Volume 10.3 fL (7.4-10.4); Platelet Count 226 10^3/uL (130-400); Red Blood Cell Count 4.34 10^6/uL (4.70-6.10); Red Cell Dist. Width 13.2 % (11.5-14.5); White Blood Cell Count 8.9 10^3/uL (4.8-10.8)
[2024-01-28 05:26] LABS: APTT 97.1 Sec (23.4-35.0)
[2024-01-28 05:33] LABS: Blood Urea Nitrogen 15 mg/dl (9-20); Calcium 9.2 mg/dl (8.4-10.2); Carbon Dioxide 26 mmol/L (22-30); Chloride 101 mmol/L (98-107); Estimated Creatinine Clearance 86 ml/min; Glucose 106 mg/dl (70-99); Sodium 136 mmol/L (135-145); eGFR > 60.00
--- NOTE | 2024-01-28 08:41 | W.PN.HOSP.TC ---
Today's Communication/Plan
-
For lymph node biopsy today
Start Eliquis 2 hours afterwards
Discharge home if feeling okay
Follow-up with ENT & oncology in the office in 1-2 weeks
Assessment / Plan
Assessment / Plan
HPI: 69-year-old male past medical history of BPH status post surgery presenting with significant swelling and pain of his left upper extremity worsening over the past 2 weeks.� No chest pain or shortness of breath.� No facial
flushing/headache/blurry vision.� Vascular ultrasound left upper extremity shows large amount of occlusive thrombus of the left upper extremity including internal jugular/subclavian and axillary veins, cephalic/brachial/basilic veins.� CT chest
shows in addition shows large amount of lymphadenopathy in the mediastinum/supraclavicular regions concerning for lymphoma.� There is also T3 and C5 osteolytic metastases, nondisplaced fracture of left lateral ninth rib. Significant DVT secondary to
likely newly discovered lymphoma.� Heparin drip started.� Vascular surgery consulted.� Oncology consulted. Pain control.
#Large amount of lymphadenopathy in the mediastinum and bilateral supraclavicular regions raising concern for lymphoma or teofilo metastases
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
#Smaller lytic lesions in the C5 vertebral body and in the right scapula.
Appreciate oncology input, who recommends ENT consult for lymph node biopsy
For lymph node biopsy today
Start Eliquis 2 hours afterwards
Discharge home if feeling okay
Follow-up with ENT & oncology in the office in 1-2 weeks
#Extensive DVT left upper extremity�provoked
Vascular surgery consulted, no surgical intervention
Status post heparin drip, will change to Eliquis after his lymph node biopsy today
#Subacute nondisplaced fracture of the left lateral ninth rib
#Pathologic due to neoplastic disease - lymphoma
Lidocaine patch, tylenol, pain meds prn
�� � � � � ��CT neck with IV contrast:
�� � � � � � � � � 1. Extensive occlusive thrombus in the left upper extremity with extension into the left internal jugular vein to the mid to upper neck at the level of C2 and the distal segment of the left brachiocephalic vein.
�� � � � � � � � � 2. Large amount of lymphadenopathy in the mediastinum and bilateral supraclavicular regions raising concern for lymphoma or teofilo metastases.
�� � � � � � � � � 3. Large osteolytic metastasis of the T3 vertebral body and posterior elements with extraosseous soft tissue.
�� � � � � � � � � 4. Smaller lytic lesions in the C5 vertebral body and in the right scapula.
�� � � � � � � � � 5. Subacute nondisplaced fracture of the left lateral ninth rib.
� � � � � ���Ultrasound left upper extremity:�Large amount of occlusive thrombus in the cephalic, brachial, basilic veins of the upper arm.� Occlusive thrombus in the basilic vein distal to the elbow
#BPH
#Urinary retention Hx
Continue Flomax 0.4 mg daily, finasteride hs
DVT prophylaxis�SCDs
Full code
Physical Exam
General: No acute distress
HEENT: Normocephalic, Atraumatic, EOMI, MMM
Lymphadenopathy (L>R supraclav nodes, ~1cm)
Respiratory: Clear to Auscultation bilaterally
Cardiac: Normal S1/S2, Regular Rate and Rhythm
GI: Soft, Nontender, Nondistended, Normal Bowel Sounds
Extremities: No Clubbing, Cyanosis
Left upper extremity diffusely edematous, tender to palpation
Anticipated Discharge: Today
Subjective/Interval History
-
Date of Service: January 28, 2024
Patient reports left upper arm is tight and sore. No severe pain. No shortness of breath, no chest pain.
Objective Data
-
Labs:
Laboratory Results
01/27/24 01/28/24 01/28/24
20:15 04:13 11:30
WBC 8.9
Hgb 12.6 L
Hct 35.8 L
Plt Count 226
APTT 179.0 H* 97.1 H Pending
Sodium 136
Potassium 4.0
Chloride 101
Carbon Dioxide 26
BUN 15
Creatinine 0.9
Glucose 106 H
Calcium 9.2
Vital Signs:
Vital Signs
Temp Pulse Resp BP Pulse Ox
98.5 F 90 14 140/94 95
01/28/24 07:56 01/28/24 07:56 01/28/24 07:56 01/28/24 07:56 01/28/24 07:56
I&O
01/27/24 01/28/24 01/29/24
06:59 06:59 06:59
Intake Total 360 / 360 1859
Balance 360 / 360 1859
[2024-01-28 11:43] LABS: APTT 31.7 Sec (23.4-35.0)
[2024-01-28] MEDS: ZOFRAN 4 MG IV (12:45)
--- NOTE | 2024-01-28 13:05 | PN.CDI ---
CDI
- -
CDI:
Physician Documentation Request
Admit Date: 01/26/24 23:13
Dear Doctor Do,
Please review the following and provide your response in the progress notes.
Clinical Indicators:
- 01/26 PN 'Subacute nondisplaced fracture of the left lateral ninth rib' from CT neck
- 'concern for lymphoma'
- No pmh documented for osteoporosis or fall
Please provide further specificity regarding the diagnosis of the left lateral ninth rib fracture:
Traumatic
Pathologic due to neoplastic disease - lymphoma
Pathologic due to other disease (please specify)
Other
Use of terms such as suspected, likely, concern for, or probable (associated with a specific diagnosis that is being evaluated, monitored, or treated as if it exists) are acceptable and can be coded in the inpatient setting, when documented at the
time of discharge.
Thank you,
Steve Gamble RN
CDI Specialist
Please use your independent medical judgment in providing your response.
--- NOTE | 2024-01-28 14:34 | W.DCSUMMARY ---
Discharge Summary
Discharge Data
Date of Admission: 01/26/24
Date of Discharge: 01/28/24
-
Pending Results: Yes
Additional Pending Results:
Supraclavicular lymph node biopsy
Hospital Course
Discharge diagnosis:
Supraclavicular lymphadenopathy concerning for lymphoma or teofilo metastases
Large osteolytic metastases of the thoracic 3 vertebral body
Smaller lytic lesions in the cervical 5 vertebral body
Extensive deep vein thrombosis of the left upper extremity
Pathologic subacute nondisplaced fracture of the left lateral ninth rib
Benign prostatic hypertrophy
Consults: Oncology, ENT, vascular surgery
Procedures:
01/28/2024 excisional lymph node biopsy
Hospital course:
69-year-old male past medical history of BPH status post surgery presented with significant swelling and pain of his left upper extremity, worsening over the past 2 weeks.� No chest pain or shortness of breath.� No facial flushing/headache/blurry
vision.� Vascular ultrasound left upper extremity shows large amount of occlusive thrombus of the left upper extremity, including internal jugular/subclavian and axillary veins, cephalic/brachial/basilic veins.� CT chest shows shows large amount of
lymphadenopathy in the mediastinum/supraclavicular regions concerning for lymphoma.� There is also T3 and C5 osteolytic metastases, nondisplaced fracture of left lateral ninth rib. His DVT is provoked, likely due to malignancy, highly suspicious
for lymphoma.
Patient was treated with IV heparin for his extensive left upper extremity DVT. He was seen in conjunction with vascular surgery, there were no signs or symptoms of compartment syndrome, vascular surgery signed off.
Patient was seen in conjunction with oncology, who recommended ENT consult for lymph node biopsy since he is on IV heparin drip. He was seen by ENT, and had a lymph node excisional biopsy on 01/28/2024. Afterwards, he was changed to Eliquis, 10 mg
twice a day for 7 days, then 5 mg twice a day.
Patient did well after his lymph node biopsy. He is medically stable for discharge. He can follow-up with oncology in the office in 1 week for biopsy results and further treatment plans. He needs to follow-up with ENT in the office in 2 weeks, as
well as his primary care doctor in 1 week.
Disposition: Home self-care
Discharge planning: Required 50 minutes
Discharge Plan
-
Patient Disposition: Home (Routine Discharge)
Discharge Diagnosis/Procedures: Left upper extremity DVT, supraclavicular lymphadenopathy concerning for lymphoma/cancer, lytic vertebral lesions concerning for metastases/spread of cancer, subacute nondisplaced fracture of the left lateral ninth
rib
Condition: Fair
Diet: Regular
Activity: As tolerated
Driving Restrictions: As prior to admission
Activity Restrictions/Additional Instructions:
Okay to shower in 48 hours. Keep dressing on until seen by ENT.
Take Eliquis 10 mg twice a day for 7 days, followed by 5 mg twice a day.
Notify your doctor if you have any bleeding, black or bloody stools, or blood in your urine.
Follow-up with your primary care doctor in 1 week, oncology in 1-2 weeks, and ENT in 2 weeks.
Please call their offices to make an appointment, tell them you are in the hospital and they will get you in sooner.
Referrals:
Dominique Schwab MD [Active] - in one to two weeks
Jose Sarkar MD [Active] - in two weeks
Pritesh Rai MD [Family Provider] - in one week
Prescriptions:
New
oxycodone 5 mg Tablet
5 mg PO Q4HPRN PRN (Reason: moderate pain) Qty: 20 0RF
Eliquis 5 mg tablet
See Rx Instructions .ROUTE .COMPLEX Qty: 75 0RF
Rx Instructions:
2 tablets twice a day for 7 days, then 1 tablet twice a day
Continued
multivitamin Tablet
1 tab PO QPM
finasteride 5 mg tablet
5 mg PO HS
tamsulosin 0.4 MG capsule
0.4 mg PO HS
Discharge Orders:
Discharge Patient (As Directed); Ordered 01/28/24
Ordered By: Yaron Horan
Discharge Date and Time
Discharge Date/Time: 01/28/24 18:41
--- NOTE | 2024-01-28 15:49 | CM ---
Patient has been medically cleared for discharge to home with no additional skilled services. Patient arranged for transport home.
--- NOTE | 2024-01-28 15:50 | PTCARENOTE ---
Received pt from PACU post cervical lymph node biopsy, left neck dressing with scant blood upon arrival to the unit, VSS, pt resting comfortably in bed.
[2024-01-28] MEDS: ELIQUIS 10 MG PO (16:13)
[2024-01-28 21:15] LABS: Hepatitis C Antibody Negative (Negative)
== END 2024-01-28 18:41 | disposition home or self-care (01) | DRG 824 ==
LOC: 2 NORTH 23:13
PROVIDERS: Clinical Nurse Specialist Family Health; Physician Assistant; ADMITTING PHYSICIAN Hospitalist; ATTENDING PHYSICIAN Family Medicine; CONSULT PHYSICIAN Otolaryngology; EMERGENCY PHYSICIAN Emergency Medicine; FAMILY PHYSICIAN Family Medicine; OTHER PHYSICIAN Internal Medicine Hematology & Oncology; OTHER PHYSICIAN Surgery Vascular Surgery
PROC: 07B20ZX Excision of Left Neck Lymphatic, Open Approach, Diagnostic (ICD-10-PCS; 2024-01-28)
DX: C85.81 Other specified types of non-Hodgkin lymphoma, lymph nodes of head, face, and neck (principal); I82.B12 Acute embolism and thrombosis of left subclavian vein; M84.58XA Pathological fracture in neoplastic disease, other specified site, initial encounter for fracture; I82.C12 Acute embolism and thrombosis of left internal jugular vein; N40.1 Benign prostatic hyperplasia with lower urinary tract symptoms; R59.0 Localized enlarged lymph nodes; R33.8 Other retention of urine; Z80.7 Family history of other malignant neoplasms of lymphoid, hematopoietic and related tissues
CPT/HCPCS: 88307; 70491; 71260; 80048; 80053; 85025; 85027; 85610; 85730; 86803; 88341; 88342; 93971; 96374; 96376; 99285; C9250; Q9967

== ENCOUNTER 2024-02-01 17:54 | Inpatient (IN) | payer OTHER, MEDICARE, SELFPAY ==
[2024-02-01 15:59] VITALS: BP 140/84
[2024-02-01 16:18] LABS: % Eosinophils 2.6 % (0-6); % Immature Granulocytes 0.8 % (0-0.5); % Lymphocytes 14.4 % (20.5-51.1); % Monocytes 9.4 % (1.7-9.3); % Neutrophils 71.8 % (42.2-75.2); Absolute Basophils 0.1 10^3/uL (0-0.2); Absolute Eosinophils 0.2 10^3/uL (0-0.7); Absolute Immature Granulocytes 0.1 10^3/uL (0-0.05); Absolute Lymphocytes 1.2 10^3/uL (1.2-3.4); Absolute Monocytes 0.8 10^3/uL (0.1-0.6); Absolute Neutrophils 5.7 10^3/uL (1.4-6.5); Hematocrit 40.1 % (39.0-52.0); Hemoglobin 13.6 g/dL (13.0-18.0); Mean Corp Hgb Conc. 33.9 g/dL (33.0-37.0); Mean Corpuscular Hgb 28.8 pg (27.0-31.0); Mean Platelet Volume 10.5 fL (7.4-10.4); Nucleated Red Blood Cells % 0 % (-); Platelet Count 284 10^3/uL (130-400); Red Blood Cell Count 4.72 10^6/uL (4.70-6.10); Red Cell Dist. Width 13.3 % (11.5-14.5)
[2024-02-01 16:29] LABS: ALT (SGPT) 23 U/L (0-50); AST (SGOT) 29 U/L (17-59); Albumin 3.8 g/dl (3.5-5.0); Alkaline Phosphatase 67 U/L (38-126); Blood Urea Nitrogen 20 mg/dl (9-20); Calcium 9.3 mg/dl (8.4-10.2); Carbon Dioxide 26 mmol/L (22-30); Chloride 99 mmol/L (98-107); Glucose 120 mg/dl (70-99); Potassium 3.9 mmol/L (3.5-5.1); Sodium 133 mmol/L (135-145); Total Bilirubin 0.6 mg/dl (0.2-1.3); Total Protein 6.6 g/dl (6.3-8.2); eGFR > 60.00
--- NOTE | 2024-02-01 16:33 | ED.GENMED ---
History of Present Illness
General
Chief Complaint: Post Operative Problem(s)
Source: patient and physician
Time Seen by Provider: 02/01/24 16:28
Travel History
Have you had any contact with someone who has COVID-19?: No
Do you have any symptoms of coronavirus? Fever > 100 degrees, chills, cough, shortness of breath, sore throat, loss of taste or smell, muscle aches, or headache?: No
History of Present Illness
History of Present Illness:
69-year-old male presenting to the emergency department from the ENT office after he had a lymph node biopsy done on the left side of his neck a few days ago. Patient states that since the biopsy he has had persistent leaking from the surgical site
and while at the office today there was extensive leaking. ENT was concerned for a chyle leak and sent him to the ER to ultimately be admitted with plan for possible PICC line, TPN and wound monitoring. Patient has no other complaints at this
time. He denies any fevers, chills, rigors.
Past History
Past History
ED Past Medical History: None
ED Past Surgical History: Orthopedic
Social History
Tobacco: Non-smoker
Alcohol: None
Drug: None
Personal:
Living: with family
Employment: Employed
Family History
Family History: Other
Review of Systems
Review of Systems
All Other Systems: ROS reviewed and negative except as documented in HPI and ROS
Phy Exam
Physical Exam
Physical Exam:
GENERAL: Alert , in no apparent distress
EYE: conjunctiva clear
Head: Normocephalic atraumatic
NECK: Supple,
ENT: mmm.
LUNGS: no acute respiratory distress
NEUROLOGICAL: Alert and oriented
SKIN: Warm and dry, surgical incision to the left side of the neck noted. Proximalmost portion did have faint leaking but no active bleeding. No surrounding erythema
MUSCULOSKELETAL: well perfused.
PSYCH: Normal and appropriate interaction.
Scores
Heart Failure Risk
Heart Failure Risk Score: Not Applicable
Heart Score for Chest Pain Patients
STEMI patient?: Not applicable
Withdrawal Assessment of Alcohol
Withdrawal Assessment Completed?: Not applicable
Course
Orders/Labs/Results
Orders:
Orders
02/01/24 16:08
Complete Blood Count/With Diff Urgent
Comprehensive Metabolic Panel Urgent
02/01/24 16:51
Octreotide [Sandostatin] 100 mcg SC NOW STA
Abnormal Lab Results
02/01/24
16:08
MPV 10.5 H fL
(7.4-10.4)
Abs Immat Gran (auto) 0.1 H 10^3/uL
(0-0.05)
Absolute Monos (auto) 0.8 H 10^3/uL
(0.1-0.6)
Immature Gran % 0.8 H %
(0-0.5)
Lymphocytes % 14.4 L %
(20.5-51.1)
Monocytes % 9.4 H %
(1.7-9.3)
Sodium 133 L mmol/L
(135-145)
Glucose 120 H mg/dl
(70-99)
02/01/24 16:08
02/01/24 16:08
Vital Signs
Initial and Last Documented VS:
Initial Vital Signs
Temp Pulse Resp BP Pulse Ox
98.4 F 75 18 140/84 98
02/01/24 15:59 02/01/24 15:59 02/01/24 15:59 02/01/24 15:59 02/01/24 15:59
Last Documented Vital Signs
Temp Pulse Resp BP Pulse Ox
98.4 F 75 18 140/84 98
02/01/24 15:59 02/01/24 15:59 02/01/24 15:59 02/01/24 15:59 02/01/24 15:59
MDM/Problems Addressed
Differential Diagnosis Includes:
chyle leak, postoperative seroma, abscess
MDM/Problems Addressed:
69-year-old male present emergency department for evaluation ultimately admission by the ENT team. At present time patient is hemodynamically stable and in no acute distress. ENT was recommending 100 mcg of octreotide be delivered subcutaneously
so we will order this now. Plan to admit to hospitalist team with the ENT in consult.
*Pulse Oximetry
Patient hypoxic: no
*Critical Care Note
Total Time (30-74mins, 75-104mins- exclusive of procedures): Not Applicable
Data Reviewed
Review of Other/Old Records Reveals: Operative Reports
Source: patient and records
Patient Management
Discussion with other providers: Hospitalist and Inside Sales Agent
Escalation/DeEscalation of care consider admission/obs:
Hospitalist is aware and accepts for continued evaluation and treatment.
5:20 PM: ENT at the patient's bedside and placing in a pressure dressing.
ED Attending Note
-
Portions of this chart may have been created with voice recognition software.� Occasional wrong word or��sound alike� substitutions may have occurred due to the inherent limitations of voice recognition software.
Discharge Plan
Departure
Patient Disposition: Admit
Date of Disposition: 02/01/24
Time of Disposition: 16:33
Presentation/result/management discussed w/ accepting MD/DO: Hospitalist
Discharge Problem:
Post surgical complication, Chylocele
Prescriptions:
No Action
multivitamin Tablet
1 tab PO QPM
finasteride 5 mg tablet
5 mg PO HS
tamsulosin 0.4 MG capsule
0.4 mg PO HS
oxycodone 5 mg Tablet
5 mg PO Q4HPRN PRN (Reason: moderate pain) Qty: 20 0RF
Eliquis 5 mg tablet
See Rx Instructions .ROUTE .COMPLEX Qty: 75 0RF
Rx Instructions:
2 tablets twice a day for 7 days, then 1 tablet twice a day
Interventions
Interventions:
*Risk Screen - Suicide Last Done: 02/01/24 15:59
*General Assessment Last Done: 02/01/24 15:59
*Neglect/Abuse Screening Last Done: 02/01/24 15:59
ED- Fall Risk Assessment Last Done: 02/01/24 16:30
*ED COVID-19 Vaccine History Last Done: 02/01/24 15:59
ED-Skin Assessment Last Done: 02/01/24 16:32
--- NOTE | 2024-02-01 17:18 | HPS.HSE ---
Addendum entered and electronically signed by Linda Holland MD 02/01/24 17:53:
I saw and examined the patient.
The ADJUNCT PSYCHOLOGY FACULTY MEMBER or PA's note was reviewed and I agree with the note.
Comment:
69M BPH recent dx LUE DVT w/ associate Lymphadenopathy, s/p Lt supraclavicular neck excisional bx, placed on Eliquis, referred to ED by ENT due to concern post-operative complication Chyle Leak, draining milky fluid from wound site for past few
days. Denies pain shortness or breath nausea vomiting diarrhea fever chills coughing sneezing. Patient reports otherwise feeling well. LUE swelling significantly improved since start of Eliquis. VSS. Labs unremarkable.
Physical Exam
General: No pallor, cyanosis, or jaundice.
HEENT: Throat clear. PERRLA Normocephalic atraumatic
NECK: Supple. No JVD Carotid Bruits
Chest: Lungs clear to auscultation. No crackles wheezes stridor, left supraclavicular wound dressing in place Clean dry intact
CVS: S1, S2 normal. RRR. No murmur, rub or gallop.
ABDOMEN: Soft, non-tender. No distension. BS+/normal.
EXTREMITIES: No peripheral cyanosis or edema. Mild tenderness LUE
SALES FINANCIAL ANALYST: AOx3. No focal deficits.
Chyle Leak following Left Supraclavicular Lymph Node Excision
Metastatic Prostatic Adenocarcinoma
Left Upper Ext DVT diagnosed 01/26/2024
-octreotide as per ENT
-NPO, PICC placement for possible TPN
-Continue Eliquis
-Oncology eval
Original Note:
Family Physician
-
Family Physician: Pritesh Rai
Chief Complaint
-
Drainage from lymph node excision site
History of Present Illness
Patient is a 69 y/o male with PMH of BPH, DVT of left upper extremity on Eliquis, and extensive lymphadenopathy s/p left supraclavicular neck excisional biopsy on January 28, 2024 who was sent to the ED by Dr. Sarkar for excessive drainage from
surgical wound. Patient says the wound has been draining 'milky' fluid for the past two days, stating that he he went through 6 t-shirts and 6 towels last night. He saw Dr. Sarkar in the office today who redressed the wound and sent him to the ED.
Patient admits the swelling in his left arm has reduced significantly since hospital discharge. He denies any other changes since his hospital stay.
Medical History
Past Medical History
Past Medical History: Reports Other
Additional Past Medical History:
BPH
Left Upper Ext DVT
Past Surgical History: Reports Other
Additional Past Surgical History:
Left Supraclavicular Excisional Biopsy
TURP
Groin Hernia Repair
Social History
Tobacco: Non-smoker
Alcohol: None
Drug: None
Personal: Single
Living: With Family (Son)
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
Family History
Family History: Other (Believes father of lymphoma in his 80s, mother history of obesity, cardiac disease )
Allergies / Home Medications
Allergies reflects when Allergies were last updated in [facility].
Home Medications with original date entered in [facility]
Allergy/Medication List:
Allergies
Allergy/AdvReac Type Severity Reaction Status Date / Time
No Known Allergies Allergy Verified 02/01/24 16:01
Home Medications
finasteride 5 mg tablet 5 mg PO HS Urinary Issue 01/26/24
multivitamin 1 tab PO QPM Supplement 01/26/24
tamsulosin 0.4 mg capsule 0.4 mg PO HS Urinary Issue 01/26/24
apixaban 5 mg tablet (Eliquis) See Rx Instructions .Route .COMPLEX #75 tabs 01/28/24
oxycodone 5 mg tablet 5 mg PO Q4HPRN PRN moderate pain #20 tabs 01/28/24
Review of Systems
-
A 12 point ROS was completed and negative except as noted: Yes
Constitutional: Denies Fever or Chills
Respiratory: Denies Cough or Trouble Breathing
Cardiac: Denies Chest Pain or Palpitations
Abdomen/GI: Reports Constipated; Denies Abdominal Pain, Nausea, Vomiting or Diarrhea
Physical Exam
Vital Signs
Vital Signs
Temp Pulse Resp BP Pulse Ox
98.4 F 75 18 140/84 98
02/01/24 15:59 02/01/24 15:59 02/01/24 15:59 02/01/24 15:59 02/01/24 15:59
Physical Exam
General: Comfortable and Conversant
HEENT: Anicteric, Moist mucous membranes and Other (Dressing in place to left neck)
Respiratory: Clear and Non Labored Respirations
Cardiac: S1/S2 and Regular Rhythm
GI: Soft and Non Tender
Rectal: Deferred by Provider
Musculoskeletal: No Clubbing, No Cyanosis and No Edema
Skin: Warm and Dry
Neuro: Awake, Alert and Oriented
Psych: Calm
Laboratory Results
-
02/01/24 16:08
02/01/24 16:08
Laboratory Results
Total Bilirubin 0.6 mg/dl (0.2-1.3) 02/01/24 16:08
AST 29 U/L (17-59) 02/01/24 16:08
ALT 23 U/L (0-50) 02/01/24 16:08
Alkaline Phosphatase 67 U/L (38-126) 02/01/24 16:08
Data Reviewed
-
Lab Data: Labs Reviewed by me
Old Records: Reviewed
Impression/Plan
-
Chyle Leak following Left Supraclavicular Lymph Node Excision
-Reviewed with ENT
-Continue Octreotide SC
-Continue NPO/IVFs
-Place PICC line for possible TPN
Metastatic Prostatic Adenocarcinoma
-Consult Oncology
Left Upper Ext DVT diagnosed 01/26/2024
-Continue Eliquis
Code Status: Full Code
[2024-02-01] MEDS: SANDOSTATIN 100 MCG SC ×2 (17:22→22:12)
[2024-02-01 18:23] VITALS: BP 136/72
[2024-02-01 20:05] VITALS: BP 140/91; BMI 24.4
--- NOTE | 2024-02-01 20:05 | PTCARENOTE ---
Pt transferred from ED.Pt ambulated into room with assistance. Pt [id number], able to make needs known, VSS. Pt oriented to unit, call brown within reach.
[2024-02-01] MEDS: D5/0.9% SODIUM CHLORIDE 1000 IV (22:02)
[2024-02-01] MEDS: PROSCAR 5 MG PO (22:08)
[2024-02-01] MEDS: ELIQUIS 10 MG PO (22:08)
[2024-02-01] MEDS: FLOMAX 0.400000000000000022 MG PO (22:08)
[2024-02-01 23:28] VITALS: BP 141/85
[2024-02-02 04:27] VITALS: BMI 24.2
[2024-02-02] MEDS: D5/0.9% SODIUM CHLORIDE 1000 IV (05:20)
[2024-02-02 05:35] LABS: Hemoglobin 12.6 g/dL (13.0-18.0); Mean Corpuscular Hgb 29.2 pg (27.0-31.0); Mean Corpuscular Volume 83.3 fL (80.0-94.0); Mean Platelet Volume 10.5 fL (7.4-10.4); Platelet Count 270 10^3/uL (130-400); Red Blood Cell Count 4.32 10^6/uL (4.70-6.10); Red Cell Dist. Width 13.2 % (11.5-14.5); White Blood Cell Count 5.4 10^3/uL (4.8-10.8)
[2024-02-02 06:12] LABS: Blood Urea Nitrogen 16 mg/dl (9-20); Calcium 8.5 mg/dl (8.4-10.2); Carbon Dioxide 25 mmol/L (22-30); Chloride 105 mmol/L (98-107); Estimated Creatinine Clearance 91 ml/min; Glucose 148 mg/dl (70-99); Potassium 4.2 mmol/L (3.5-5.1); Sodium 133 mmol/L (135-145); eGFR > 60.00
[2024-02-02 07:45] VITALS: BP 108/68
--- NOTE | 2024-02-02 07:59 | W.PN.HOSP.TC ---
Addendum entered and electronically signed by Linda Holland MD 02/03/24 12:31:
Acute LUE DVT improved on anticoagulation
Mild Hyponatremia nonsignificant
Original Note:
Today's Communication/Plan
-
cont pressure dressings Ocreotide as per ENT
low fat high protein diet started
Casodex as per Oncology
pending Bone Scan
Cont Eliquis
Assessment / Plan
Assessment / Plan
Physical Exam
General: No pallor, cyanosis, or jaundice.
HEENT: Throat clear. PERRLA Normocephalic atraumatic
NECK: Supple. No JVD Carotid Bruits
Chest: Lungs clear to auscultation. No crackles wheezes stridor, left supraclavicular wound dressing in place, soaked
CVS: S1, S2 normal. RRR.� No murmur, rub or gallop.
ABDOMEN: Soft, non-tender. No distension. BS+/normal.
EXTREMITIES: No peripheral cyanosis or edema. Mild tenderness LUE
MODELING ANALYST: AOx3. No focal deficits.
69M BPH recent dx LUE DVT w/ associate Lymphadenopathy, s/p Lt supraclavicular neck excisional bx, placed on Eliquis, referred to ED by ENT due to concern post-operative complication Chyle Leak, draining milky fluid from wound site for past few
days.� Denies pain shortness or breath nausea vomiting diarrhea fever chills coughing sneezing.� Patient reports otherwise feeling well. LUE swelling significantly improved since start of Eliquis.� VSS.� Labs unremarkable.�
Chyle Leak following Left Supraclavicular Lymph Node Excision
-ENT eval appreciated cont Ocreotide Subq Q8H
-Low Fat high Protein diet started, IVF completed
Metastatic Prostatic Adenocarcinoma
-Consult Oncology appreciated bone scan pending, Casodex daily started
-CT abd/pelvis appreciated worsening Lymphadenopathy consistent with malignant involvement, left moderate hydronephrosis due to lymphadenopathy, osseous metastasis L2, Prostatomegaly, Stable 5 mm cyst pancreatic head
Left Upper Ext DVT diagnosed 01/26/2024
-Continue Eliquis
Code Status: Full Code
discussed with Patient and his son Julius
I spent a total of 59 minutes with the patient or on the floor. More than 50% of this time involved counseling and coordination of care.
Anticipated Discharge: 24 - 48 hours
Subjective/Interval History
-
Date of Service: February 02, 2024
Seen and examined at bedside in no acute distress resting comfortably in bed. Reports requiring multiple bandage changes overnight due to chyle leak drenching. Otherwise reports feeling well. Denies other new acute issues at this time. Eager to
resume eating. Son Julius present during evaluation
Objective Data
-
Labs:
Laboratory Results
02/02/24
05:07
WBC 5.4
Hgb 12.6 L
Hct 36.0 L
Plt Count 270
Sodium 133 L
Potassium 4.2
Chloride 105
Carbon Dioxide 25
BUN 16
Creatinine 0.9
Glucose 148 H
Calcium 8.5
Vital Signs:
Vital Signs
Temp Pulse Resp BP Pulse Ox
98.2 F 68 16 108/68 95
02/02/24 07:45 02/02/24 07:45 02/02/24 07:45 02/02/24 07:45 02/02/24 07:45
I&O
02/01/24 02/02/24 02/03/24
06:59 06:59 06:59
Intake Total 1000 / 1000
Output Total 250 / 250
Balance 750 / 750
[2024-02-02] MEDS: SANDOSTATIN 100 MCG SC ×3 (08:11→23:58)
[2024-02-02] MEDS: ELIQUIS 10 MG PO ×2 (08:11→21:02)
--- NOTE | 2024-02-02 08:53 | CON.ONC ---
Addendum entered and electronically signed by Dominique Schwab MD 02/02/24 11:41:
Patient seen and examined, agree w/ A&P as below
69 yo w/ recent admission for DVT, found to have adenopathy and bone lesions, s/p excisional node biopsy on 01/28/24, with path c/w metastatic prostate cancer. Now admitted with post-op chyle leak. Left arm swelling has improved on Eliquis. Back pain
is chronic.
Reviewed path w/ patient and son, c/w metastatic prostate cancer, an unexpected diagnosis. PSA pending this am. h/o TURP and BPH, known to Dr. Duron.
Will check bone scan and CT A/P to complete staging.
Will start Casodex daily, and plan to add Lupron in ~2 weeks. Likely will add 2nd generation androgen jaye as well.
May benefit from palliative RT to the back if pain persists, also Xgeva.
Mgmt of chyle leak per surgery/primary team.
Will follow along
Original Note:
Impression
Impression
LUE DVT recently started on Eliquis 01/26/24
Lymphadenopathy s/p left supraclavicular neck excisional bx 01/29/24 with ENT
Concern post-operative complication of Chyle leak
Bone lesions to T3, C5, right scapula
Metastatic Prostatic Adenocarcinoma on pathology (01/28/24)
Plan
Plan
01/28/24 Pathology: metastatic prostatic adenocarcinoma
PSA ordered - patient denies family hx of prostate cancer
ENT management of chyle leak: Octreotide ordered
Continue Eliquis BID for hx LUE DVT
CBC with diff daily
NPO, IVF
Supportive care, pain management, wound care
PICC line to be placed
Anticipate additional imaging
We will continue to follow.
Patient History
History of Present Illness
Rohit Rausch is a 69 year old male seen by our service 01/27/24 for left upper extremity arm swelling pain, poor appetite, and fatigue. US showed a large occlusive thrombus with extension into left IJ and brachiocephalic vein. Imaging noted
lymphadenopathy in the mediastinum and bilateral supraclavicular region raising concerns for lymphoma or metastatic disease. ENT evaluated patient during this prior admission. He was taken to the OR 01/[address] Sarkar for excisional biopsy of
left supraclavicular lymph node. He returned to the ER last evening, 01/31, with complaints of copious drainage from the surgical site. ENT evaluated him in the office and was concerned for chyle leak so they instructed him to proceed to the ER for
further care. He states a drain was unable to be placed in the ENT office. Patient denies fever, chills, pain at this time. Patient denies personal or family history of prostate cancer. He states his father had lymphoma later in life in his 80's.
Past-Medical/Surgical History
Lymphadenopathy s/p left supraclavicular neck excision bx 01/29/24 with ENT
Concern for chyle leak with copious drainage from incision site
LUE DVT started on Eliquis 01/26/24
Osteolytic lesions of T3 vertebral body, C5 vertebral body, right scapula�
Metastatic Prostatic Adenocarcinoma on pathology
Hx BPH w/ urinary retention s/p TURP (2019, Dr. Duron)
Hx left scrotal hernia repair w/ mesh (2018, Dr. Landis)
Right carpal tunnel release (2007)
Hx ureteral stones
Patient Medication
Medication Instructions Recorded Confirmed Last Taken Type
finasteride 5 mg tablet 5 mg PO HS Urinary Issue 01/26/24 02/01/24 01/31/24 History
multivitamin 1 tab PO QPM Supplement 01/26/24 02/01/24 01/31/24 History
tamsulosin 0.4 mg capsule 0.4 mg PO HS Urinary Issue 01/26/24 02/01/24 01/31/24 History
apixaban 5 mg tablet (Eliquis) See Rx Instructions .Route 01/28/24 02/01/24 02/01/24 Rx
.COMPLEX #75 tabs
oxycodone 5 mg tablet 5 mg PO Q4HPRN PRN moderate pain 01/28/24 02/01/24 Unknown Rx
#20 tabs
Active Medications
Generic Name Dose Route Start Last Admin
Trade Name Freq PRN Reason Stop Dose Admin
Acetaminophen 650 mg 02/01/24 19:30
Acetaminophen 325 Mg Tablet PO 02/29/24 19:29
Q4HPRN PRN
mild pain/ fever>100.5F
Apixaban 10 mg 02/01/24 20:00 02/02/24 08:11
Apixaban (Eliquis) 5 Mg Tablet PO 02/03/24 20:01 10 mg
BID KRISTAN Administration
Apixaban 5 mg 02/04/24 08:00
Apixaban (Eliquis) 5 Mg Tablet PO 03/03/24 07:59
BID KRISTAN
Finasteride 5 mg 02/01/24 22:00 02/01/24 22:08
Finasteride 5 Mg Tablet PO 02/29/24 21:59 5 mg
HS KRISTAN Administration
Dextrose/Sodium Chloride 1,000 mls @ 125 mls/hr 02/01/24 19:30 02/02/24 05:20
D5/0.9% Sodium Chloride IV 1,000 mls
.Q8H KRISTAN Administration
Octreotide Acetate 100 mcg 02/01/24 22:00 02/02/24 08:11
Octreotide 100 Mcg/Ml I Ml Injection SC 02/29/24 21:59 100 mcg
TID KRISTAN Administration
Sodium Chloride 0 flush 02/01/24 21:00
Sodium Chloride 0.9% (Flush) Syringe IV 02/29/24 20:59
PER PROTOCOL KRISTAN
Tamsulosin HCl 0.4 mg 02/01/24 22:00 02/01/24 22:08
Tamsulosin 0.4 Mg Capsule PO 02/29/24 21:59 0.4 mg
HS KRISTAN Administration
Review of Systems
-
History Source: Patient, Coordinated Provider and Records
Constitutional: Reports No Symptoms; Denies Fever or Chills
EENT: Reports No Symptoms
Respiratory: Reports No Symptoms
Cardiac: Reports No Symptoms
GI: Reports No Symptoms
Breast: Reports N/A
: Reports No Symptoms
Musculoskeletal: Reports No Symptoms
Skin: Reports Other (left neck incisional site )
Neuro: Reports No Symptoms
Endocrine: Reports No Symptoms
Hematologic/Lymphatic: Reports No Symptoms
Allergy / Immunology: Reports No Symptoms
Psych: Reports No Symptoms
Physical Exam
-
patient is resting comfortably. He denies pain at this time. son at bedside.
General: Well Developed, Well Nourished, No Apparent Distress, Comfortable and Conversant; Negative Pain, Fever or Chills
HEENT: Negative Jaundice
Cardiology: S1 and S2
Pulmonary: Clear
GI: Normal Bowel Sounds
Genito-Urinary: Deferred by me
Musculoskeletal: Edema. Left Upper Extrem (trace )
Extremities: Pulses Present
Neurology: Non Focal
Skin: Warm, Dry and Other (left neck surgical site with bulky dressing in place, serous drainage noted)
Hematologic / Lymphatic: No Petechiae
Psych: Calm
Labs
Lab Results
WBC 5.4 10^3/uL (4.8-10.8) 02/02/24 05:07
RBC 4.32 10^6/uL (4.70-6.10) L 02/02/24 05:07
Hgb 12.6 g/dL (13.0-18.0) L 02/02/24 05:07
Hct 36.0 % (39.0-52.0) L 02/02/24 05:07
MCV 83.3 fL (80.0-94.0) 02/02/24 05:07
MCH 29.2 pg (27.0-31.0) 02/02/24 05:07
MCHC 35.0 g/dL (33.0-37.0) 02/02/24 05:07
RDW 13.2 % (11.5-14.5) 02/02/24 05:07
Plt Count 270 10^3/uL (130-400) 02/02/24 05:07
MPV 10.5 fL (7.4-10.4) H 02/02/24 05:07
Abs Immat Gran (auto) 0.1 10^3/uL (0-0.05) H 02/01/24 16:08
Absolute Neuts (auto) 5.7 10^3/uL (1.4-6.5) 02/01/24 16:08
Absolute Lymphs (auto) 1.2 10^3/uL (1.2-3.4) 02/01/24 16:08
Absolute Monos (auto) 0.8 10^3/uL (0.1-0.6) H 02/01/24 16:08
Absolute Eos (auto) 0.2 10^3/uL (0-0.7) 02/01/24 16:08
Absolute Basos (auto) 0.1 10^3/uL (0-0.2) 02/01/24 16:08
Immature Gran % 0.8 % (0-0.5) H 02/01/24 16:08
Neutrophils % 71.8 % (42.2-75.2) 02/01/24 16:08
Lymphocytes % 14.4 % (20.5-51.1) L 02/01/24 16:08
Monocytes % 9.4 % (1.7-9.3) H 02/01/24 16:08
Eosinophils % 2.6 % (0-6) 02/01/24 16:08
Basophils % 1.0 % (0-2) 02/01/24 16:08
Creatinine 0.9 mg/dL (0.7-1.3) 02/02/24 05:07
Vital Signs
Vital Signs
Temp Pulse Resp BP Pulse Ox
98.2 F 68 16 108/68 95
02/02/24 07:45 02/02/24 07:45 02/02/24 07:45 02/02/24 07:45 02/02/24 07:45
01/26/[address]: Extensive occlusive thrombus in the left upper extremity with extension into the left internal jugular vein to the mid to upper neck at the level of C2 and the distal segment of the left brachiocephalic vein. Large amount of
lymphadenopathy in the mediastinum and bilateral supraclavicular regions raising concern for lymphoma or teofilo metastases.Large osteolytic metastasis of the T3 vertebral body and posterior elements with extraosseous soft tissue.Smaller lytic lesions
in the C5 vertebral body and in the right scapula. Subacute nondisplaced fracture of the left lateral ninth rib.
[2024-02-02] MEDS: CASODEX 50 MG PO (12:17)
[2024-02-02] MEDS: D5/0.9% SODIUM CHLORIDE IV (12:28)
[2024-02-02 12:38] LABS: PSA, Total - Diagnostic > 2000.00 ng/ml (0.0-4.0)
[2024-02-02] MEDS: TYLENOL 650 MG PO (15:40)
[2024-02-02 15:50] VITALS: BP 123/83
--- NOTE | 2024-02-02 16:17 | W.PN.ENT ---
Today's Communication
-
Continue current care.
Please teach patient to inject himself with octreotide subcutaneously.
It may be possible to discharge patient home while giving subcutaneous injections. Visiting nursing may be necessary for the first few days while at home.
Impression / Plan
-
A/P- 69-year-old male with metastatic prostate cancer, s/p left supraclavicular lymph node biopsy, now with chyle leak
-Patient stable today.
-Left neck minimally improved.
-Continue pressure dressings, can change as needed.
-Continue octreotide 100 mcg subcutaneous every 8 hours.
-Patient can eat but should be on a high-protein, low-fat diet.
-Consult nutrition if necessary.
-Please teach patient to give himself subcutaneous injections. This could speed up his discharge home.
-Would anticipate patient staying for another 48 hours.
-If his drainage has improved and he is doing well, patient may be out of be discharged home on high-protein, low-fat diet while continuing subcutaneous injections of octreotide at home.
-Medicine and oncology input appreciated.
Subjective Data
-
Patient doing well overall.
No significant complaints today.
Has had drainage from left neck, dressing was changed 5 times since admission.
Has been n.p.o. for now.
Denies any aches or pains, no shortness of breath.
Objective Data
-
Vital Signs
Temp Pulse Resp BP Pulse Ox
98.0 F 76 16 123/83 97
02/02/24 15:50 02/02/24 15:50 02/02/24 15:50 02/02/24 15:50 02/02/24 15:50
Intake & Output
02/01/24 02/02/24 02/03/24
06:59 06:59 06:59
Intake:
IV fluids (Total) 1000 / 1000
Output:
Urine, Voided 250 / 250
Lab Results
02/02/24 05:07
02/02/24 05:07
Calcium 8.5 mg/dl (8.4-10.2) 02/02/24 05:07
Total Bilirubin 0.6 mg/dl (0.2-1.3) 02/01/24 16:08
AST 29 U/L (17-59) 02/01/24 16:08
ALT 23 U/L (0-50) 02/01/24 16:08
Alkaline Phosphatase 67 U/L (38-126) 02/01/24 16:08
Physical Exam
-
Awake, alert, oriented, no acute distress.
Nasal cavity, oral cavity, oropharynx clear.
Left neck with some fullness, moderate edema, soft, nontender.
Incision intact.
Minimal drainage from posterior aspect of incision.
Mild erythema of skin.
No subcutaneous emphysema noted.
Pressure dressing applied.
--- NOTE | 2024-02-02 16:31 | CM ---
daycare manager reviewed patient's chart and met with patient and patient lives with his 2 sons and daughter in law in a multilevel home, patient is independent with adl's and ambulation, no dme, patient has prescription plan and patient uses [facility]
pharmacy.
PCP: Dr. Rai
Plan; Home when stable, no needs.
[2024-02-02] MEDS: PROSCAR 5 MG PO (21:02)
[2024-02-02] MEDS: FLOMAX 0.400000000000000022 MG PO (21:02)
[2024-02-02 22:46] VITALS: BP 123/75
[2024-02-03 06:33] VITALS: BMI 30.9
[2024-02-03 06:36] VITALS: BMI 30.9
--- NOTE | 2024-02-03 06:52 | W.PN.ONC2 ---
Today's Communication / Plan
-
69 yo w/ recent admission for DVT, found to have adenopathy and bone lesions, s/p excisional node biopsy on 01/28/24, with path c/w metastatic prostate cancer and PSA > 2000. No priors in [facility]. Now admitted with post-op left neck chyle leak.
Left arm swelling has improved on Eliquis. Back pain is chronic.
Await staging bone scan. CT A/P reviewed. Will consult urology for maligant left hydronephrosis.
Start Casodex daily, and plan to add Lupron in ~2 weeks. Likely will add 2nd generation androgen jaye as well.
May benefit from palliative RT to the back if pain persists, also Xgeva.
Continue Eliquis BID for hx LUE DVT, will transition to 5 mg PO BID after 7 days (scheduled to switch to 5 mg BID tomorrow)
CT C/A/P reviewed with patient. LN and bone mets. For bone scan to complete staging.
Impression
Impression
Metastatic Prostate Ca with LN and bone mets
Chyle Leak following Left Supraclavicular Lymph Node Excision bx
LUE DVT on Eliquis started 01/26/24
Left malignant hydronephrosis
Plan
Plan
69 yo w/ recent admission for DVT, found to have adenopathy and bone lesions, s/p excisional node biopsy on 01/28/24, with path c/w metastatic prostate cancer and PSA > 2000. No priors in [facility]. Now admitted with post-op left neck chyle leak.
Left arm swelling has improved on Eliquis. Back pain is chronic.
Reviewed path w/ patient and son, c/w metastatic prostate cancer, an unexpected diagnosis. h/o TURP and BPH, known to Dr. Duron.
Await staging bone scan. CT A/P reviewed. Will consult urology for maligant left hydronephrosis.
Start Casodex daily, and plan to add Lupron in ~2 weeks. Likely will add 2nd generation androgen jaye as well.
May benefit from palliative RT to the back if pain persists, also Xgeva.
Continue Eliquis BID for hx LUE DVT, will transition to 5 mg PO BID after 7 days (scheduled to switch to 5 mg BID tomorrow)
CT C/A/P reviewed with patient. LN and bone mets. For bone scan to complete staging.
Subjective/Objective
Chief Complaint
ACS Heme Onc
Subjective
No new complaints.
Vital Signs:
Vital Signs
Temp Pulse Resp BP Pulse Ox
98.3 F 74 18 123/75 96
02/02/24 22:46 02/02/24 22:46 02/02/24 22:46 02/02/24 22:46 02/02/24 22:46
Lab Results:
Laboratory Data
WBC 5.4 10^3/uL (4.8-10.8) 02/02/24 05:07
Hgb 12.6 g/dL (13.0-18.0) L 02/02/24 05:07
Plt Count 270 10^3/uL (130-400) 02/02/24 05:07
eGFR > 60.00 02/02/24 05:07
Physical Exam
HEENT: Other (left neck dressed)
Cardiology: S1 and S2
Pulmonary: Clear
Orders
Orders
Orders From Last 24 Hours
02/03/24 06:13
UROLOGY CONSULT Routine
--- NOTE | 2024-02-03 07:10 | PN.CDI ---
CDI
- -
CDI:
Physician Documentation Request
Admit Date: 02/01/24 17:54
Dear Doctor Amalia,
Please review the following and provide your response in the progress notes.
Clinical Indicators:
Laboratory Tests
02/01/24 02/02/24
16:08 05:07
Sodium 133 L 133 L
Please clarify in the progress notes, the appropriate diagnosis, if significant, that supports the above abnormalities and additional evaluation, monitoring and/or treatment rendered:
Hyponatremia
Abnormal lab value, clinically insignificant
Other
Use of terms such as suspected, likely, concern for, or probable (associated with a specific diagnosis that is being evaluated, monitored, or treated as if it exists) are acceptable and can be coded in the inpatient setting, when documented at the
time of discharge.
Thank you,
Francisca Anaya RN BSN CCDS
CDI Specialist
please contact via tiger text
Please use your independent medical judgment in providing your response.
--- NOTE | 2024-02-03 07:11 | W.PN.HOSP.TC ---
Today's Communication/Plan
-
cont prophylactic abx, wound care as per ENT
Casodex Orgovyx as per Oncology Urology
cont anticoagulation
Ocreotide
Likely discharge tomorrow home with VN, if remains stable/continues to improve
Assessment / Plan
Assessment / Plan
Physical Exam
General: No pallor, cyanosis, or jaundice.
HEENT: Throat clear. PERRLA Normocephalic atraumatic
NECK: Supple. No JVD Carotid Bruits
Chest: Lungs clear to auscultation. No crackles wheezes stridor, left supraclavicular wound dressing in place, swelling noted, mild tenderness
CVS: S1, S2 normal. RRR.� No murmur, rub or gallop.
ABDOMEN: Soft, non-tender. No distension. BS+/normal.
EXTREMITIES: No peripheral cyanosis or edema. Mild tenderness LUE
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
69M BPH recent dx LUE DVT w/ associate Lymphadenopathy, s/p Lt supraclavicular neck excisional bx, placed on Eliquis, referred to ED by ENT due to concern post-operative complication Chyle Leak, draining milky fluid from wound site for past few
days.� Denies pain shortness or breath nausea vomiting diarrhea fever chills coughing sneezing.� Patient reports otherwise feeling well. LUE swelling significantly improved since start of Eliquis.� VSS.� Labs unremarkable.�
Chyle Leak following Left Supraclavicular Lymph Node Excision
-ENT eval appreciated cont Ocreotide Subq Q8H, started on ancef for infection prophylaxis
-Low Fat high Protein diet, IVF completed
Metastatic Prostatic Adenocarcinoma
-Consult Oncology appreciated Casodex daily started, cont
-CT abd/pelvis appreciated worsening Lymphadenopathy consistent with malignant involvement, left moderate hydronephrosis due to lymphadenopathy, osseous metastasis L2, Prostatomegaly, Stable 5 mm cyst pancreatic head
-MRI cervical spine appreciated 1.1 cm metastasis C5, partial metastasis T3, no evidence extraosseous ext dz, no abnormal spinal cord lesions, Lymphadenopathy Left lower neck/supraclavicular region, mediastinal lymphadenopathy, degenerative changes
cervical spine, moderate left-sided neural foraminal stenosis C6/7
-Bone scan appreciated bony metastatic disease several scattered foci right scapula, upper thoracic spine, lower cervical spine, b/l ribs, left ischium, proximal left femur
-Urology eval appreciated Orgovyx started
Left Upper Ext DVT diagnosed 01/26/2024
-Continue Eliquis
Code Status: Full Code
discussed with Patient and his sons Julius and Arash
I spent a total of 55 minutes with the patient or on the floor. More than 50% of this time involved counseling and coordination of care.
Anticipated Discharge: Within 24 hours
Subjective/Interval History
-
Date of Service: February 03, 2024
Draining has stopped though area is swollen with mild tenderness.
Objective Data
-
Labs:
Laboratory Results
02/03/24
06:54
WBC Pending
Hgb Pending
Hct Pending
Plt Count Pending
Sodium Pending
Potassium Pending
Chloride Pending
Carbon Dioxide Pending
BUN Pending
Creatinine Pending
Glucose Pending
Calcium Pending
Vital Signs:
Vital Signs
Temp Pulse Resp BP Pulse Ox
98.3 F 74 18 123/75 96
02/02/24 22:46 02/02/24 22:46 02/02/24 22:46 02/02/24 22:46 02/02/24 22:46
I&O
02/02/24 02/03/24 02/04/24
06:59 06:59 06:59
Intake Total 1000 / 1000 1200 / 1200
Output Total 250 / 250
Balance 750 / 750 1200 / 1200
--- NOTE | 2024-02-03 07:12 | PN.CDI ---
CDI
- -
CDI:
Physician Documentation Request
Admit Date: 02/01/24 17:54
Dear Doctor Amalia,
Please review the following and provide your response in the progress notes.
Clinical Indicators:
H+P, 01/31
#...PMH of BPH, DVT of left upper extremity on Eliquis, and extensive lymphadenopathy
#Patient admits the swelling in his left arm has reduced significantly since hospital discharge.
#Left Upper Ext DVT diagnosed 01/26/2024
#...-Continue Eliquis
Please clarify which of the following accurately represents the acuity of the left upper extremity DVT:
Acute left upper extremity DVT
Acute on Chronic left upper extremity DVT
Chronic left upper extremity DVT
Other
Use of terms such as suspected, likely, concern for, or probable (associated with a specific diagnosis that is being evaluated, monitored, or treated as if it exists) are acceptable and can be coded in the inpatient setting, when documented at the
time of discharge.
Thank you,
Francisca Anaya RN BSN CCDS
CDI Specialist
please contact via tiger text
Please use your independent medical judgment in providing your response.
--- NOTE | 2024-02-03 07:40 | CON.MD ---
Consultation - Medical
-
see dictated note-
pt followed by dr cat for BPH- on flomax and proscar
no prior surgery
recently evaluated for dvt and adenopathy
started on leiquis- underwent cervical node bx with ENT
developed sig wound drainage
path on node= prostate cancner
psa checked on admit- >1999
ct scan shows diffuse adenopathy and mild left hydro- no pain and renal function stable
oncology has seen and started on casodex
plan
begin casodex
do not think we need to intervene on hydro at this time given anticoagulated state- other issues and nl renal function- is likely to improve with initiation of anti-androgen therapy
will discuss with dr cat and payal
[2024-02-03 07:49] VITALS: BP 129/78
[2024-02-03 08:38] LABS: Hematocrit 38.2 % (39.0-52.0); Hemoglobin 13.3 g/dL (13.0-18.0); Mean Corp Hgb Conc. 34.8 g/dL (33.0-37.0); Mean Corpuscular Hgb 29.2 pg (27.0-31.0); Mean Platelet Volume 10.9 fL (7.4-10.4); Platelet Count 294 10^3/uL (130-400); Red Blood Cell Count 4.55 10^6/uL (4.70-6.10); Red Cell Dist. Width 13.2 % (11.5-14.5); White Blood Cell Count 7.8 10^3/uL (4.8-10.8)
[2024-02-03 09:06] LABS: Blood Urea Nitrogen 13 mg/dl (9-20); Calcium 8.6 mg/dl (8.4-10.2); Carbon Dioxide 25 mmol/L (22-30); Chloride 103 mmol/L (98-107); Estimated Creatinine Clearance 71 ml/min; Glucose 102 mg/dl (70-99); Magnesium 2.1 mg/dl (1.6-2.3); Phosphorus 3.7 mg/dl (2.5-4.5); Potassium 4.2 mmol/L (3.5-5.1); Sodium 133 mmol/L (135-145); eGFR > 60.00
[2024-02-03] MEDS: THERAGRAN 1 TABLET PO (09:30)
[2024-02-03] MEDS: ELIQUIS 10 MG PO ×2 (09:30→20:08)
[2024-02-03] MEDS: CASODEX 50 MG PO (09:30)
[2024-02-03] MEDS: SANDOSTATIN 100 MCG SC ×2 (09:31→16:14)
--- NOTE | 2024-02-03 15:09 | W.PN.URO.CBU ---
Today's Communication / Plan
-
pt my take own rx [id number] po qd pharmacy aware
Assessment / Plan
-
metastaic acp on eliquis prefer not to bx on eliqus as teofilo bx revaled acp will srtat medical castration and pt stared on oral orgovyx heme onc aware and approve willfojefeow spoke with family willcomanage eventuallywith hemeonc once
acute problems stabilize
Diagnosis
-
Date of Service: February 03, 2024
-
Patient Diagnosis:
metastaic acp widely spread left hydro back pain ferreira[praclavicularnodes
Post Op Day:
Subjective
-
back pain
Objective
-
Vital Signs
Temp Pulse Resp BP Pulse Ox
98.4 F 77 16 129/78 96
02/03/24 07:49 02/03/24 07:49 02/03/24 07:49 02/03/24 07:49 02/03/24 11:25
Intake and Output
02/02/24 02/03/24 02/04/24
06:59 06:59 06:59
Intake Total 1000 / 1000 1200 / 1200
Output Total 250 / 250
Balance 750 / 750 1200 / 1200
Intake:
Oral fluids 1200 / 1200
IV fluids (Total) 1000 / 1000
Output:
Urine, Voided 250 / 250
Other:
Number of approximated MODERATE 2
amounts of urine
Laboratory Results
02/03/24 06:54
02/03/24 06:54
psa ob=parker 2000
Review of Systems
-
Constitutional: Weight Loss
: Frequency
Musculoskeletal: Joint Pain
Physical Exam
-
General - well developed, well nourished, no acute distress
Chest - clear bilaterally
Abdomen - soft, non-tender, positive bowel sounds, no CVAT, no incisional pain or distention
Genitalia - normal
Rectal -small
Skin - warm & dry with no rash
Neuro - AOx3, no motor deficits
Extremities - no clubbing, no cyanosis, no edema
Incision - clean, dry
Dressing - clean, dry, intact
Care Review
Data Reviewed
CT Scan: Image Pers Reviewed
[2024-02-03 15:55] VITALS: BP 123/88
[2024-02-03] MEDS: NON-FORMULARY ITEM 1 UNIT PO (16:13)
--- NOTE | 2024-02-03 16:13 | W.PN.ENT ---
Today's Communication
-
Patient seems to be improving.
Hopefully he can be discharged home tomorrow.
Patient will continue octreotide at home for 1 week.
Please have case management see patient to see if he is a candidate for some home nursing visits.
I will start the patient on antibiotics.
Impression / Plan
-
A/P- 69-year-old male with metastatic prostate cancer, s/p left supraclavicular lymph node biopsy, now with chyle leak
-Patient cont to improve.
-Left neck stable, no drainage noted today which is a significant improvement.
-Continue octreotide 100 mcg subcutaneous every 8 hours.
-Patient will cont high-protein, low-fat diet.
-Please cont to teach patient to give himself subcutaneous injections.
-Anticipate discharge home tomorrow if patient is otherwise stable.
-Patient should continue octreotide for 1 week at home once discharged.
-Continue high-protein, low-fat diet for 2 weeks, until seen in the office.
-Can keep left neck clean and dry.
-Would recommend starting antibiotics to ensure left neck does not become infected, given collection is present.
-I will start patient on Ancef now, can go home on oral antibiotics for 10 days.
Subjective Data
-
Continues to do patient continues to do well.
Has some mild left neck pain.
Denies any drainage overnight, dressing from yesterday still in place. Patient is tolerating high-protein, low-fat diet without any difficulty.
Denies any fevers or chills, no shortness of breath or chest pain.
Objective Data
-
Vital Signs
Temp Pulse Resp BP Pulse Ox
98.4 F 80 16 123/88 97
02/03/24 15:55 02/03/24 15:55 02/03/24 15:55 02/03/24 15:55 02/03/24 15:55
Intake & Output
02/02/24 02/03/24 02/04/24
06:59 06:59 06:59
Intake:
Oral fluids 1200 / 1200
IV fluids (Total) 1000 / 1000
Output:
Urine, Voided 250 / 250
Other:
Number of approximated MODERATE 2
amounts of urine
Lab Results
02/03/24 06:54
02/03/24 06:54
Calcium 8.6 mg/dl (8.4-10.2) 02/03/24 06:54
Phosphorus 3.7 mg/dl (2.5-4.5) 02/03/24 06:54
Magnesium 2.1 mg/dl (1.6-2.3) 02/03/24 06:54
Total Bilirubin 0.6 mg/dl (0.2-1.3) 02/01/24 16:08
AST 29 U/L (17-59) 02/01/24 16:08
ALT 23 U/L (0-50) 02/01/24 16:08
Alkaline Phosphatase 67 U/L (38-126) 02/01/24 16:08
Physical Exam
-
Awake, alert, oriented, no acute distress.
Nasal cavity, oral cavity, oropharynx clear.
Left neck with moderate fullness, moderate edema, soft, nontender.
Incision intact.
Rel stable overall.
Mild erythema of skin.
No sig drainage noted from left neck incision.
No subcutaneous emphysema noted.
Pressure dressing applied.
[2024-02-03] MEDS: TYLENOL 650 MG PO (16:21)
--- NOTE | 2024-02-03 16:28 | CM ---
Addendum entered by Gale Adams 02/03/24 16:55:
Patient is agreeable to [facility], referral sent to [facility] liaison.
Addendum entered by Gale Adams 02/03/24 16:30:
Patient may benefit from visiting nurses per ENT. will discuss with patient.
Original Note:
Home when stable.
Plan; Home with sons when stable.
[2024-02-03] MEDS: ANCEF 5 IV (18:03)
[2024-02-03] MEDS: PROSCAR 5 MG PO (20:07)
[2024-02-03] MEDS: FLOMAX 0.400000000000000022 MG PO (20:08)
[2024-02-03] MEDS: MELATONIN 5 MG PO (20:46)
[2024-02-03 22:41] VITALS: BP 133/85
[2024-02-04] MEDS: SANDOSTATIN 100 MCG SC ×2 (01:59→08:53)
[2024-02-04] MEDS: ANCEF 5 IV ×2 (01:59→09:01)
[2024-02-04 05:26] VITALS: BMI 30.5
--- NOTE | 2024-02-04 07:23 | W.PN.HOSP.TC ---
Today's Communication/Plan
-
discharge
Assessment / Plan
Assessment / Plan
Physical Exam
General: No pallor, cyanosis, or jaundice.
HEENT: Throat clear. PERRLA Normocephalic atraumatic
NECK: Supple. No JVD Carotid Bruits
Chest: Lungs clear to auscultation. No crackles wheezes stridor, left supraclavicular wound dressing in place, swelling improved, mild tenderness
CVS: S1, S2 normal. RRR.� No murmur, rub or gallop.
ABDOMEN: Soft, non-tender. No distension. BS+/normal.
EXTREMITIES: No peripheral cyanosis or edema. Mild tenderness LUE
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 No focal deficits.
69M BPH recent dx LUE DVT w/ associate Lymphadenopathy, s/p Lt supraclavicular neck excisional bx, placed on Eliquis, referred to ED by ENT due to concern post-operative complication Chyle Leak, draining milky fluid from wound site for past few
days.� Denies pain shortness or breath nausea vomiting diarrhea fever chills coughing sneezing.� Patient reports otherwise feeling well. LUE swelling significantly improved since start of Eliquis.� VSS.� Labs unremarkable.�
Chyle Leak following Left Supraclavicular Lymph Node Excision
-ENT eval appreciated cont Ocreotide Subq Q8H 1 wk, started on ancef for infection prophylaxis to convert to Augmentin 875 mg BID 10 days on discharge, outpt ENT follow up in 2 weeks
-Low Fat high Protein diet to continue for 2 wks
Metastatic Prostatic Adenocarcinoma
-Consult Oncology appreciated Casodex daily started, cont
-CT abd/pelvis appreciated worsening Lymphadenopathy consistent with malignant involvement, left moderate hydronephrosis due to lymphadenopathy, osseous metastasis L2, Prostatomegaly, Stable 5 mm cyst pancreatic head
-MRI cervical spine appreciated 1.1 cm metastasis C5, partial metastasis T3, no evidence extraosseous ext dz, no abnormal spinal cord lesions, Lymphadenopathy Left lower neck/supraclavicular region, mediastinal lymphadenopathy, degenerative changes
cervical spine, moderate left-sided neural foraminal stenosis C6/7
-Bone scan appreciated bony metastatic disease several scattered foci right scapula, upper thoracic spine, lower cervical spine, b/l ribs, left ischium, proximal left femur
-Urology eval appreciated Orgovyx started
Left Upper Ext DVT diagnosed 01/26/2024
-Continue Eliquis
Code Status: Full Code
Medically stable for discharge home with home services and outpatient follow up recommendations.
discussed with Patient and his sons Julius and Arash
Total Time Preparing Discharge ___45____ minutes including examination of the patient, summary of the hospital stay, instructions for continuing care to all relevant caregivers; and preparation of discharge records, prescriptions, and referral
forms if necessary.
Anticipated Discharge: Today
Subjective/Interval History
-
Date of Service: February 04, 2024
Seen and examined at bedside in no acute distress resting comfortably in bed. Overall reports feeling well, eager to go home. Sons Arash and Julius present during evaluation.
Objective Data
-
Labs:
Laboratory Results
02/04/24
06:51
WBC Pending
Hgb Pending
Hct Pending
Plt Count Pending
Sodium Pending
Potassium Pending
Chloride Pending
Carbon Dioxide Pending
BUN Pending
Creatinine Pending
Glucose Pending
Calcium Pending
Vital Signs:
Vital Signs
Temp Pulse Resp BP Pulse Ox
99.5 F 86 20 133/85 96
02/03/24 22:41 02/03/24 22:41 02/03/24 22:41 02/03/24 22:41 02/03/24 22:41
I&O
02/03/24 02/04/24 02/05/24
06:59 06:59 06:59
Intake Total 1200 / 1200 1100 / 1100
Output Total 650 / 650
Balance 1200 / 1200 450 / 450
[2024-02-04 07:38] VITALS: BP 130/76
[2024-02-04] MEDS: THERAGRAN 1 TABLET PO (08:52)
[2024-02-04] MEDS: ELIQUIS 5 MG PO (08:52)
[2024-02-04] MEDS: CASODEX 50 MG PO (08:52)
[2024-02-04 08:53] LABS: Hematocrit 36.3 % (39.0-52.0); Hemoglobin 12.7 g/dL (13.0-18.0); Mean Corpuscular Hgb 29.5 pg (27.0-31.0); Mean Corpuscular Volume 84.4 fL (80.0-94.0); Platelet Count 277 10^3/uL (130-400); Red Cell Dist. Width 13.2 % (11.5-14.5); White Blood Cell Count 10.7 10^3/uL (4.8-10.8)
[2024-02-04] MEDS: NON-FORMULARY ITEM 1 UNIT PO ×2 (08:53→11:16)
--- NOTE | 2024-02-04 09:49 | W.PN.URO.CBU ---
Today's Communication / Plan
-
home via hospitalist
Assessment / Plan
-
metastaic acp on eliquis prefer not to bx on eliqus as teofilo bx revaled acp will srtat medical castration and pt stared on oral orgovyx heme onc aware and approve roxi spoke with family willcomanage eventuallywith hemeonc once
acute problems stabilize
Diagnosis
-
Date of Service: February 04, 2024
-
Patient Diagnosis:
Post Op Day:
Patient Diagnosis:
metastaic acp widely spread left hydro back pain lymphedema
Post Op Day:
Subjective
-
feels well
Objective
-
Vital Signs
Temp Pulse Resp BP Pulse Ox
99.5 F 86 20 133/85 96
02/03/24 22:41 02/03/24 22:41 02/03/24 22:41 02/03/24 22:41 02/03/24 22:41
Intake and Output
02/03/24 02/04/24 02/05/24
06:59 06:59 06:59
Intake Total 1200 / 1200 1100 / 1100
Output Total 650 / 650
Balance 1200 / 1200 450 / 450
Intake:
Oral fluids 1200 / 1200 1100 / 1100
Output:
Urine, Voided 650 / 650
Other:
Number of approximated MODERATE 2 4
amounts of urine
Laboratory Results
02/04/24 06:51
Review of Systems
-
: Difficulty Voiding
Musculoskeletal: Muscle Pain
Physical Exam
-
General - well developed, well nourished, no acute distress
Chest - clear bilaterally
Abdomen - soft, non-tender, positive bowel sounds, no CVAT, no incisional pain or distention
Genitalia - normal
Rectal - normal
Skin - warm & dry with no rash
Neuro - AOx3, no motor deficits
Extremities - no clubbing, no cyanosis, no edema
Incision - clean, dry
Dressing - clean, dry, intact
Counseling
-
perhospitalist
Care Review
Data Reviewed
Discussed with: Internal Medicine (entand heme onc) and Family
CT Scan: Image Pers Reviewed
[2024-02-04 09:50] LABS: Blood Urea Nitrogen 14 mg/dl (9-20); Calcium 8.6 mg/dl (8.4-10.2); Carbon Dioxide 25 mmol/L (22-30); Chloride 103 mmol/L (98-107); Estimated Creatinine Clearance 70 ml/min; Glucose 107 mg/dl (70-99); Magnesium 1.9 mg/dl (1.6-2.3); Phosphorus 3.8 mg/dl (2.5-4.5); Potassium 4.2 mmol/L (3.5-5.1); Sodium 132 mmol/L (135-145); eGFR > 60.00
--- NOTE | 2024-02-04 11:11 | W.PN.ONC ---
Today's Communication / Plan
-
Patient clinically improving
Ultrasound left upper extremity
Orgovyx initiated albeit loading dose interfragment infection over 12 hours patient has now received the 360 mg loading dose as of 11:00
Orgovyx daily will begin tonight at 8 PM with 120 mg daily
Continue to monitor resolution of chylous leak
Impression
Impression
Metastatic Prostate Ca with LN and bone mets
Chyle Leak following Left Supraclavicular Lymph Node Excision bx
LUE DVT on Eliquis started 01/26/24
Left malignant hydronephrosis
Subjective/Objective
Subjective/Objective
Patient is noticing significant improvement. His lower left extremity swelling is resolved. The left upper extremity swelling is improved. There is a palpable cord in the left upper extremity.
Vital Signs:
Vital Signs
Temp Pulse Resp BP Pulse Ox
99.5 F 86 20 133/85 96
02/03/24 22:41 02/03/24 22:41 02/03/24 22:41 02/03/24 22:41 02/03/24 22:41
HEENT without scleral icterus
Heart Regular without murmurs
Lungs decreased in the bases
Upper extremities near symmetrical left upper extremity with a palpable cord
Lab Results:
Laboratory Data
WBC 10.7 10^3/uL (4.8-10.8) 02/04/24 06:51
Hgb 12.7 g/dL (13.0-18.0) L 02/04/24 06:51
Plt Count 277 10^3/uL (130-400) 02/04/24 06:51
eGFR > 60.00 02/04/24 06:51
Orders
Orders
Orders From Last 24 Hours
02/04/24 11:03
Non-Formulary Item See Dose Instructions PO NOW STA
02/04/24 20:00
Non-Formulary Item See Dose Instructions PO DAILY@1999
--- NOTE | 2024-02-04 11:29 | W.PN.ENT ---
Today's Communication
-
Okay to discharge home from ENT perspective.
Continue octreotide for 1 more week, can stop next .
Discharge with Augmentin 875 p.o. twice daily for 10 days.
Patient should keep dressing on, can get it wet.
Follow-up in my office in 2 weeks.
Impression / Plan
-
A/P- 69-year-old male with metastatic prostate cancer, s/p left supraclavicular lymph node biopsy, now with chyle leak
-Patient cont to improve.
-Left neck stable, scant drainage noted today.
-Drainage has significantly improved since admission Thursday evening.
-Continue octreotide 100 mcg subcutaneous every 8 hours.
-Patient will cont high-protein, low-fat diet.
-Patient was started yesterday on Ancef for antibiotic prophylaxis to make sure neck does not become infected.
-From ENT point of view patient can be discharged home.
-He has been taught how to inject octreotide subcutaneously every 8 hours, has sons at home for support.
-Patient should continue octreotide for 1 more week at home, can stop next .
-Occlusive dressing can remain in place until it falls off on its own.
-Patient can shower once he gets home, can get dressing wet.
-Patient will continue high-protein, low-fat diet for 2 weeks.
-Should continue oral antibiotic prophylaxis at home, would discharge with Augmentin 875 twice daily for 10 days.
-Patient can follow-up in my office in 2 weeks.
-I am leaving on vacation later today and Dr. Carroll will be covering if there are any questions.
Subjective Data
-
Patient feeling good this morning.
Did well overnight.
Does have some left neck tenderness but denies any drainage. Denies any fevers or chills.
No chest pain or shortness of breath.
Tolerating high-protein, low-fat diet without difficulty.
Objective Data
-
Vital Signs
Temp Pulse Resp BP Pulse Ox
99.5 F 86 20 133/85 96
02/03/24 22:41 02/03/24 22:41 02/03/24 22:41 02/03/24 22:41 02/03/24 22:41
Intake & Output
02/03/24 02/04/24 02/05/24
06:59 06:59 06:59
Intake:
Oral fluids 1200 / 1200 1100 / 1100
Output:
Urine, Voided 650 / 650
Other:
Number of approximated MODERATE 2 4
amounts of urine
Lab Results
02/04/24 06:51
02/04/24 06:51
Calcium 8.6 mg/dl (8.4-10.2) 02/04/24 06:51
Phosphorus 3.8 mg/dl (2.5-4.5) 02/04/24 06:51
Magnesium 1.9 mg/dl (1.6-2.3) 02/04/24 06:51
Total Bilirubin 0.6 mg/dl (0.2-1.3) 02/01/24 16:08
AST 29 U/L (17-59) 02/01/24 16:08
ALT 23 U/L (0-50) 02/01/24 16:08
Alkaline Phosphatase 67 U/L (38-126) 02/01/24 16:08
Physical Exam
-
Awake, alert, oriented in no acute distress.
Nasal cavity, oral cavity, oropharynx clear.
Left neck dressing removed.
Incision intact.
Scant drainage from posterior aspect of incision.
Moderate edema noted, no significant change from previous.
Minimal erythema around incision but no significant redness overall.
Left neck mildly tender, nonfluctuant.
Occlusive dressing reapplied.
[2024-02-04] MEDS: TYLENOL 650 MG PO (11:40)
--- NOTE | 2024-02-04 12:44 | VNURNOTE ---
Home Health Liaison met with patient and sons at 1130 to discuss [facility] nurse/therapy, visits, schedule and homebound status. Patient is agreeable and understands that visits at home will be 2-3 x per week to assess and teach medical management.
[facility] brochure provided with contact information. Patient is aware that [facility] will contact them for start of care in 1-2 days after discharge from .
[facility] referral completed in [facility].
--- NOTE | 2024-02-04 14:30 | W.DCSUMMARY ---
Discharge Summary
Discharge Data
Date of Admission: 02/01/24
Date of Discharge: 02/04/24
-
Pending Results: No
Hospital Course
69M BPH recent dx LUE DVT w/ associate Lymphadenopathy, s/p Lt supraclavicular neck excisional bx, placed on Eliquis, referred to ED by ENT due to concern post-operative complication Chyle Leak, draining milky fluid from wound site for past few
days.� Denies pain shortness or breath nausea vomiting diarrhea fever chills coughing sneezing.� Patient reports otherwise feeling well. LUE swelling significantly improved since start of Eliquis.� VSS.� Labs unremarkable.� Chyle Leak following Left
Supraclavicular Lymph Node Excision, ENT evaluated and recommended Ocreotide Subq Q8H 1 wk, started on ancef for infection prophylaxis, later converted to Augmentin 875 mg BID 10 days on discharge, outpt ENT follow up in 2 weeks. Low Fat high
Protein diet to continue for 2 wks. Unfortunately prior-auth issues precluded patient from receiving the prescribed octreotide. ENT office working on obtaining authorization. A 4 day supply was provided by hospital pharmacy. Ok to miss one day
of dosing as per discussion with ENT, patient was recommended to continue with octreotide from Thursday to Thursday and to follow up with ENT office on Thursday with regards to obtaining the remaining recommended 3 days of doses.
Metastatic Prostatic Adenocarcinoma, Oncology evaluated and started Casodex daily. CT abd/pelvis appreciated worsening Lymphadenopathy consistent with malignant involvement, left moderate hydronephrosis due to lymphadenopathy, osseous metastasis
L2, Prostatomegaly, Stable 5 mm cyst pancreatic head. MRI cervical spine appreciated 1.1 cm metastasis C5, partial metastasis T3, no evidence extraosseous ext dz, no abnormal spinal cord lesions, Lymphadenopathy Left lower neck/supraclavicular
region, mediastinal lymphadenopathy, degenerative changes cervical spine, moderate left-sided neural foraminal stenosis C6/7. Bone scan appreciated bony metastatic disease several scattered foci right scapula, upper thoracic spine, lower cervical
spine, b/l ribs, left ischium, proximal left femur. Urology evaluated and Orgovyx was started. Medically stable, patient was discharged home with home services and outpatient follow up recommendations.
Discharge Plan
-
Patient Disposition: Home with Home Care
Discharge Diagnosis/Procedures: Chyle Leak Following Supraclavicular Lymph Node Excision, Metastatic Prostate Cancer, Left Upper Extremity Deep Venous Thrombosis, Malignant Left Hydronephrosis
Condition: Fair
Diet: Low Fat
Additional Diets: continue low fat high protein diet for 2 weeks
Activity: As tolerated
Driving Restrictions: As prior to admission
Bathing Restrictions: OK to Shower
Other Services: VN
Activity Restrictions/Additional Instructions:
Occlusive dressing can remain in place until it falls off on its own, ok to shower, ok for dressing to get wet.
Please follow up with primary care provider in 1 week of discharge, oncology in 1-2 weeks of discharge, and urology in 4-6 weeks of discharge.
finasteride 5 mg tablet 5 mg PO HS Urinary Issue
multivitamin 1 tab PO QPM Supplement
tamsulosin 0.4 mg capsule 0.4 mg PO HS Urinary Issue
apixaban 5 mg tablet (Eliquis) twice a day for Left upper Extremity Deep Vein Thrombosis
oxycodone 5 mg tablet 5 mg PO Q4HPRN PRN moderate pain
amoxicillin 875 mg-potassium clavulanate 125 mg tablet 1 tab PO BID 10 days for prophylaxis against infection Chyle Leak
bicalutamide 50 mg tablet 50 mg PO DAILY For Prostate Cancer
octreotide acetate 100 mcg/mL injection solution 100 mcg SC Q8 7 days For Chyle Leak
relugolix 120 mg tablet (Orgovyx) 120 mg PO DAILY@2000 For Prostate Cancer
Please take medications as prescribed/recommended and follow up with primary care provider and/or other healthcare provider involved in your care for refills and/or further adjustments to your medication regimen as necessary.
Referrals:
Manny Ann DO [Active] - in one to two weeks
Deon Duron MD [Active] - in four to six weeks (call dr duron [phone] give us update and we want to se 4 w - 6 weeks but can be seen sooner to discuss progress and plan)
Pritesh Rai MD [Family Provider] - in one week
Prescriptions:
New
amoxicillin-pot clavulanate 875-125 mg tablet
1 tab PO BID 10 Days Qty: 20 0RF
octreotide acetate 100 mcg/mL Solution
100 mcg SC Q8 7 Days Qty: 21 0RF
bicalutamide 50 mg Tablet
50 mg PO DAILY 30 Days Qty: 30 0RF
Continued
multivitamin Tablet
1 tab PO QPM
finasteride 5 mg tablet
5 mg PO HS
tamsulosin 0.4 MG capsule
0.4 mg PO HS
oxycodone 5 mg Tablet
5 mg PO Q4HPRN PRN (Reason: moderate pain) Qty: 20 0RF
Orgovyx 120 mg Tablet
120 mg PO DAILY@1999
Changed
Eliquis 5 mg tablet
5 mg PO BID Qty: 75 0RF
Rx Instructions:
5 mg orally twice a day
Discharge Orders:
Discharge Patient (As Directed); Ordered 02/04/24
Ordered By: Linda Holland
Discharge Date and Time
Discharge Date/Time: 02/04/24 15:46
--- NOTE | 2024-02-04 14:51 | CM ---
clinic office manager reviewed patient's chart and patient is for discharge to home today.
Plan; Home with [facility].
[2024-02-04 15:00] VITALS: BP 125/70
--- NOTE | 2024-02-05 09:52 | W.PN.UPDATE ---
Addendum entered and electronically signed by Linda Holland MD 02/06/24 16:31:
Discussed with patient and his son Julius, reports doing well, chyle leak wound healing/resolving.
Confirmed they were able to mixing picker tender the 4 day supply provided by hospital for use Thursday through .
Recommended that they follow up with ENT Thursday with regards to prior-auth and obtaining the last 3 days of Ocreotide to complete 7 days treatment as recommended.
Patient able to verbalize his understanding and his willingness to comply with recommendations.
Original Note:
Update Note
Progress Note Update
Patient unable to receive Ocreotide 100 mcg Q8H for due to prior auth requirements. Efforts to obtain prior auth ongoing.
Discussed with ENT ok for patient to miss a day's dose, latest recommended to resume 02/05.
Discussed with pharmacy here able to provide patient with 4 day supply, discussed with patient's son Julius involved in father's care to start Thursday and continue through while prior auth efforts remain ongoing.
== END 2024-02-04 15:46 | disposition home health service (06) | DRG 920 ==
LOC: 4 WEST ACU 17:54
PROVIDERS: Nurse Practitioner Family; Physician Assistant Medical; Student in an Organized Health Care Education/Training Program; ADMITTING PHYSICIAN Internal Medicine; CONSULT PHYSICIAN Internal Medicine Hematology & Oncology; EMERGENCY PHYSICIAN Emergency Medicine; FAMILY PHYSICIAN Family Medicine; OTHER PHYSICIAN Specialist
DX: T81.89XA Other complications of procedures, not elsewhere classified, initial encounter (principal); C79.51 Secondary malignant neoplasm of bone; N13.30 Unspecified hydronephrosis; I82.622 Acute embolism and thrombosis of deep veins of left upper extremity; I89.8 Other specified noninfective disorders of lymphatic vessels and lymph nodes; N40.1 Benign prostatic hyperplasia with lower urinary tract symptoms; C61 Malignant neoplasm of prostate; R33.8 Other retention of urine; G89.29 Other chronic pain; M54.9 Dorsalgia, unspecified; Z80.7 Family history of other malignant neoplasms of lymphoid, hematopoietic and related tissues; Z82.49 Family history of ischemic heart disease and other diseases of the circulatory system; Z86.718 Personal history of other venous thrombosis and embolism; Z79.01 Long term (current) use of anticoagulants; Z90.79 Acquired absence of other genital organ(s); Z87.442 Personal history of urinary calculi
CPT/HCPCS: 72156; 74177; 78306; 80048; 80053; 83735; 84100; 84153; 85025; 85027; 99285; A9503; A9575; Q9967

== ENCOUNTER → 2024-05-17 08:10 | Outpatient (REF) | payer OTHER, SELFPAY | LOC: RAD 08:10 | PROVIDERS: ATTENDING PHYSICIAN Internal Medicine Hematology & Oncology; FAMILY PHYSICIAN Student in an Organized Health Care Education/Training Program | DX: I82.622 Acute embolism and thrombosis of deep veins of left upper extremity (principal) | CPT/HCPCS: 70491; 71260; 74177; Q9967 ==

== ENCOUNTER → 2024-07-13 10:37 | Outpatient (REF) | payer OTHER, SELFPAY | LOC: MRI 3T 10:37 | PROVIDERS: ATTENDING PHYSICIAN Internal Medicine Hematology & Oncology; FAMILY PHYSICIAN Family Medicine | DX: I82.622 Acute embolism and thrombosis of deep veins of left upper extremity (principal); C61 Malignant neoplasm of prostate | CPT/HCPCS: 72197; A9575 ==

== ENCOUNTER → 2024-07-21 10:24 | Outpatient (REF) | payer OTHER, SELFPAY | LOC: MRI 3T 10:24 | PROVIDERS: ATTENDING PHYSICIAN Internal Medicine Hematology & Oncology; FAMILY PHYSICIAN Family Medicine | DX: I82.622 Acute embolism and thrombosis of deep veins of left upper extremity (principal); C61 Malignant neoplasm of prostate | CPT/HCPCS: 72158; A9575 ==

== ENCOUNTER → 2024-09-05 19:33 | Outpatient (REF) | payer OTHER, SELFPAY | LOC: MRI 19:33 | PROVIDERS: ATTENDING PHYSICIAN Physician Assistant; FAMILY PHYSICIAN Student in an Organized Health Care Education/Training Program | DX: M54.14 Radiculopathy, thoracic region (principal) | CPT/HCPCS: 72146 ==

== ENCOUNTER → 2025-05-08 07:23 | Outpatient (REF) | payer OTHER, SELFPAY | LOC: PET 07:23 | PROVIDERS: ATTENDING PHYSICIAN Internal Medicine Hematology & Oncology | DX: C61 Malignant neoplasm of prostate (principal) | CPT/HCPCS: 78815 ==

== ENCOUNTER → 2025-05-10 16:11 | Outpatient (REF) | payer OTHER, SELFPAY ==
[2025-05-10 14:50] LABS: % Basophils 0.6 % (0-2); % Eosinophils 2.2 % (0-6); % Immature Granulocytes 0.2 % (0-0.5); % Lymphocytes 20.2 % (20.5-51.1); % Monocytes 10.4 % (1.7-9.3); % Neutrophils 66.4 % (42.2-75.2); Absolute Eosinophils 0.1 10^3/uL (0-0.7); Absolute Monocytes 0.5 10^3/uL (0.1-0.6); Absolute Neutrophils 3.2 10^3/uL (1.4-6.5); Hematocrit 34.6 % (39.0-52.0); Hemoglobin 12.5 g/dL (13.0-18.0); Mean Corp Hgb Conc. 36.1 g/dL (33.0-37.0); Mean Corpuscular Hgb 31.2 pg (27.0-31.0); Mean Corpuscular Volume 86.3 fL (80.0-94.0); Mean Platelet Volume 11.5 fL (7.4-10.4); Platelet Count 170 10^3/uL (130-400); Red Blood Cell Count 4.01 10^6/uL (4.70-6.10); Red Cell Dist. Width 13.2 % (11.5-14.5); White Blood Cell Count 4.9 10^3/uL (4.8-10.8)
== END ==
LOC: OIDL 16:11
PROVIDERS: ATTENDING PHYSICIAN Internal Medicine Hematology & Oncology
DX: I82.622 Acute embolism and thrombosis of deep veins of left upper extremity (principal); C61 Malignant neoplasm of prostate
CPT/HCPCS: 85025

== ENCOUNTER → 2025-09-07 11:34 | Outpatient (REF) | payer OTHER, SELFPAY | LOC: PET 11:34 | PROVIDERS: ATTENDING PHYSICIAN Internal Medicine Hematology & Oncology | DX: C61 Malignant neoplasm of prostate (principal) | CPT/HCPCS: 78815 ==